=== PATIENT | male | born 1950 | race Caucasian/White ===

== ENCOUNTER 2020-11-24 14:05 | Observation (INO) | payer OTHER ==
--- OUTSIDE RECORDS SUMMARY | 2020-11-24 14:07 | XMS REPORT | Continuity of Care Document ---
:1950 Author Organization [facility] t Address [address] [place] [address] Care Team Providers Name Role Phone Chago Marshall DO Attending Clinician Azar Benjamin MD Attending Clinician NILDA Attending Clinician Unavailable NOHEMI SANTORO Attending Clinician Unavailable Problems This patient has no known problems. Allergies, Adverse Reactions, Alerts This patient has no known allergies or adverse reactions. Social History Social Habit Start Date Stop Date Quantity Comments Source Sex Assigned At [facility] Medications Ordered Filled Start Stop Current Ordering Indication Dosage Frequency Signature Comments Components Source Medication Medication Date Date Medication? Clinician (SIG) Name Name rosuvastati 2017-09 Yes 20mg QD Take [address] [facility] ([facility]) 0-17 by mouth Luke s - 20 MG 12:46: daily. Medical tablet 34 Center Missing or 2017-09 Yes 150mg Q.5D Take [address] Non-Formula 0-17 mg [facility] - ry 12:46: mouth 2 Medical Medication 34 (two) Center times daily OFEV . Procedures This patient has no known procedures. Plan of Care Planned Activity Planned Date Details Comments Source Future Scheduled 2020-09-[address] [facility] - [facility] 00:00:00 (12+) [code = Medical Center DEPRESSION SCREENING (12+)] Future Scheduled 2020-05-19 INFLUENZA VACCINE (#1) [facility] 00:00:00 [code = INFLUENZA Medical nter VACCINE (#1)] Future Scheduled 2016-04-[address] [facility] - [facility] 00:00:00 WELLNESS (YEAR 2 or Medical Center FIRST YEAR if no IPPE) [code = MEDICARE ANNUAL WELLNESS (YEAR 2 or FIRST YEAR if no IPPE)] Future Scheduled 2015 PNEUMOCOCCAL 65+ YRS [facility] - Test 00:00:00 (1 of 1 - Medical Center [id number] PCV13) [code = PNEUMOCOCCAL 65+ YRS (1 of 1 - [id number] PCV13)] Future Scheduled 2000 SHINGLES VACCINES ([address] [facility] - Test 00:00:00 of 2) [code = SHINGLES Medic al Center VACCINES (1 of 2)] Future Scheduled 1969 DTAP/TDAP/TD VACCINES [facility] 00:00:00 (1 - Tdap) [code = Medical C enter DTAP/TDAP/TD VACCINES (1 - Tdap)] Future Scheduled 1968 HEPATITIS C SCREENING [facility] 00:00:00 [code = HEPATITIS C Medical Center SCREENING] Future Scheduled [address] [facility] [facility] - Test 00:00:00 [facility] colon (procedure) [code = 355935102] Encounters Start End Encounter Admission Attending Care Care Encounter Source Date/Time Date/Time Type Type Clinicians Facility Department ID 2020-11-23 2020-11-23 [place] [id number] 00:00:00 00:00:00 Outreach [facility] [id number] [facility] [id number] PAVROHITH [id number] 2020-11-16 2020-11-16 [facility] [id number] 00:00:00 00:00:00 Ray Vogel [id number] [place] [id number] [facility] 2020-11-12 2020-11-12 [place] [id number] 10:56:28 23:59:00 Encounter Ray Vogel [id number] [place] [id number] Mercedes [id number] 2020-10-23 2020-10-26 Office Cassidy WANATALIA [id number] 14:50:21 08:50:24 Visit Ray Vogel [id number] [place] [id number] [facility] [id number] [facility] 092 [facility] 2020-10-15 2020-10-15 Outpatient [facility] [id number] [place] 00:00:00 00:00:[address] 2020-09-24 2020-09-24 Outpatient NILDA, [facility] [id number] [place] 00:00:00 00:00:00 EMANUEL [address] Results Test Description Test Time Test Comments Results Result Comments Source IGG INDEX (CSF + BLOOD) 2018-07-06 08:32:00 Test Item Value Reference Range Interpretation Comme nts SCAN RESULT (test code = 7235086) FL, LUMBAR PUNCTURE, [id number] 16:39:00Reason for Exam:->neuropathy FINAL REPORT REFERRING PHYSICIAN: Bob Santoro M.D. PROCEDURE: Fluoroscopy guided diagnostic lumbar puncture RADIOLOGIST: Mali Garcia M.D. INDICATION: Neuropathy DESCRIPTION OF PROCEDURE:The patient was prepped and draped on the fluoroscopy table following the usual sterile fashion for lumbar puncture. 1% lidocaine was administered for local anesthesia. Using fluoroscopic guidance, a 22-gauge spinal needle was advanced into the thecal sac at the L4-5 level. Approximately 15 cc of clear spinal fluid was removed and sent to the laboratory for the requested studies. There were no periprocedural complications. Fluoroscopy time: 0.2 minutes, 1 fluoroscopic image IMPRESSION: Successful fluoroscopy guided diagnostic lumbar puncture. Signed: Mali Garcia MDReport Verified Date/Time: 07/04/2018 16:39:42 Reading Location: [facility] C0[facility] Neuro Reading Room CSF CELL COUNT [id number] 15:36:00 Test Item Value Reference Range Interpretation Comments APPEARANCE CSF (BEAKER) (test Clear Clear code = 407) COLOR CSF (BEAKER) (test code Colorless Colorless = 408) RBC CSF (BEAKER) (test code = 0 /cu mm 0-5 409) WBC CSF (BEAKER) (test code = 0 /cu mm <=5 1020) RBCS FRESH (BEAKER) (test code Not Applicable = 1444) NUMBER OF CELLS DIFF'D 0 (BEAKER) (test code = 1591) TUBE NUMBER CSF (BEAKER) (test 2 code = 2678) GLUCOSE, [id number] 15:31:00 Test Item Value Reference Range Interpretation Comments GLUCOSE CSF (BEAKER) (test code = 66 mg/dL 40-70 406) PROTEIN, [id number] 15:31:00 Test Item Value Reference Range Interpretation Comments PROTEIN CSF (BEAKER) (test code = 44 mg/dL 15-45 378)
[2020-11-24] MEDS ORDERED: NA CHLORIDE 0.9% 1,000 ML ONE (14:32)
[2020-11-24 14:38] LABS: Absolute Lymphocytes (CBC) 1.4 K/uL (0.7-4.9); Basophils % 0.5 % (0-1.3); Hematocrit 47.2 % (39.6-49.0); Lymphocytes % 19.5 % (15.3-44.8)
[2020-11-24 14:43] LABS: Protime INR 0.97
[2020-11-24 14:57] LABS: ALT/SGPT 29 U/L (12-78); AST/SGOT 22 U/L (15-37); Albumin 3.3 g/dL (3.4-5.0); Alkaline Phosphatase 82 U/L (45-117); BUN Blood Urea Nitrogen 17 mg/dL (7-18); Bicarbonate 31 mmol/L (21-32); Bilirubin Direct 0.2 mg/dL (0-0.2); Bilirubin Total 0.7 mg/dL (0.2-1.0); Glucose Level 88 mg/dL (74-106); Magnesium 2.2 mg/dL (1.8-2.4); NT PRO-BNP 74 pg/mL (<125); Potassium 4.1 mmol/L (3.5-5.1); Protein, Total 6.7 g/dL (6.4-8.2); Sodium Level 145 mmol/L (136-145); Troponin (Emerg Dept Use Only) < 0.02 ng/mL (0.0-0.045)
--- NOTE | 2020-11-24 15:03 | RAD REPORT ---
EXAM DESCRIPTION: CT - CTHCSPWOC - 11/24/2020 2:40 pm CLINICAL HISTORY: syncope, head injury COMPARISON: No comparisons TECHNIQUE: Axial 5 mm thick images of the head were obtained. Axial 2 mm thick images of the cervic al spine were obtained with sagittal and coronal reconstruction images generated and reviewed. All CT scans are performed using dose optimization technique as appropriate and may include automated exposure control or mA/KV adjustment according to patient size. FINDINGS: No intracranial hemorrhage, mass, edema or acute intracranial finding. No suspicion for ac perez infarction. No extra-axial fluid collections. Mastoid air cells and paranasal sinuses are clear. No globe or orbit abnormality seen. Right frontal scalp hematoma is present. Underlying bone is intac t. Mild atrophy and chronic ischemic change. Ventricles are in proportion. Cervical body height and alignment are normal. C4-5, C5-6 and C6-7 disc space narrowing and endplate spurring changes are present. No fracture or acute bony abnormality. Prominent facet joint degenerati ve changes are present. Bony foraminal encroachment is seen on the right at C2-3, on the left at C4-5 . Central canal detail is inherently limited. No paraspinal mass or hematoma. IMPRESSION: Right frontal scalp hematoma with underlying bone intact bone. No hemorrhage or acute in tracranial finding. Cervical spine degenerative change present with no acute finding.
--- NOTE | 2020-11-24 15:13 | RAD REPORT ---
EXAM DESCRIPTION: RAD - Chest Single View - 11/24/2020 2:52 pm CLINICAL HISTORY: syncope COMPARISON: February 2012 TECHNIQUE: AP portable chest image was obtained 11/24/2020 2:52 pm . FINDINGS: Lung volumes are low. No pneumothorax seen. No pulmonary contusion identified. Bilateral c ostophrenic angle blunting is present. This is not substantially different from comparison and theref ore no significant pleural effusions suspected. Prominent interstitial opacification throughout both lung schwarz. This has progressed from 2012. Ethan a and infiltrate could be masked in this setting. Pulmonary contusion is not suspected. Heart and vas culature are normal. No acute bony abnormality seen. No acute aortic findings suspected. IMPRESSION: No pneumothorax or pulmonary contusion. Diffusely prominent interstitial opacification progressive from 2012. This is probably progressive ch ronic interstitial lung disease. Acute mild superimposed interstitial edema or infiltrate cannot be excluded.
--- NOTE | 2020-11-24 15:53 | EDPHYS ---
Physician Documentation [facility] Name: Bennie Bowles Age: 70 yrs Sex: Male : 1950 Arrival Date: 11/24/2020 Time: 14:06 Bed 19 Private MD: Mina Bright C ED Physician Byron Moreno HPI: 11/24 14:33 This 70 yrs old Male presents to ER via EMS with complaints of Fall Injury. pm1 14:33 Details of fall: The patient fell from an upright position, while walking, and struck a pm1 tile surface, possibly chair. Onset: The symptoms/episode began/occurred just prior to arrival. Associated injuries: The patient sustained injury to the head, abrasion, contusion, injury to the chest, specifically the left breast, tenderness. Severity of symptoms: in the emergency department the symptoms are unchanged. The patient has not experienced similar symptoms in the past. The patient has not recently seen a physician, the patient's primary care provider is Dr. Bright. Patient got up from sitting, walked to the kitchen and passed out. Denies any prior headache, dizziness, chest pain, shortness of breath. He does not know why he fell down. According to EMS report, his friends from him immediately awake after they heard the fall in the kitchen. No apparent LOC. Patient reports headache to right forehead. No neck pain present. No blood thinners. - Immunization history: Last tetanus immunization: unknown. - Social history:: Smoking status: Patient/guardian denies using. ROS: 14:33 Constitutional: Negative for fever, chills, and weight loss, Neck: Negative for injury, pm1 pain, and swelling. 14:33 ENT: Negative for injury, pain, and discharge, Cardiovascular: Negative for chest pain, palpitations, and edema, Respiratory: Negative for shortness of breath, cough, wheezing, and pleuritic chest pain, Abdomen/GI: Negative for abdominal pain, nausea, vomiting, diarrhea, and constipation, Back: Negative for injury and pain, MS/Extremity: Negative for injury and deformity. 14:33 Eyes: Positive for swelling, of the right upper eyelid, Negative for vision loss, visual disturbance. 14:33 Skin: Positive for abrasion(s), ecchymosis, of the forehead. 14:33 Neuro: Positive for headache, syncope, Negative for altered mental status, dizziness, loss of consciousness, numbness, seizure activity, tingling, visual changes, weakness. Exam: 14:33 Constitutional: This is a well developed, well nourished patient who is awake, alert, pm1 and in no acute distress. Neck: Trachea midline, no thyromegaly or masses palpated, and no cervical lymphadenopathy. Supple, full range of motion without nuchal rigidity, or vertebral point tenderness. No Meningismus. 14:33 Back: No spinal tenderness. No costovertebral tenderness. Full range of motion. Skin: Warm, dry with normal turgor. Normal color with no rashes, no lesions, and no evidence of cellulitis. MS/ Extremity: Pulses equal, no cyanosis. Neurovascular intact. Full, normal range of motion. 14:33 Head/face: Noted is no obvious of injury or deformity except abrasion(s), that are mild, of the forehead, right side, contusion, that is superficial, of the forehead, right side. 14:33 Eyes: Pupils: no acute changes, Extraocular movements: intact throughout, Conjunctiva: no acute changes, Lids and lashes: swelling right upper eyelid. 14:33 Chest/axilla: Inspection: no acute changes, Palpation: crepitus, is not appreciated, tenderness, that is mild, of the focal point pain to left breast, that totally reproduces the patient's complaints. 14:33 Cardiovascular: Exam negative for acute changes, Rate: normal, Rhythm: irregular, Pulses: no pulse deficits are appreciated, Heart sounds: normal, Edema: is not appreciated. 14:33 Respiratory: Exam negative for acute changes, respiratory distress, shortness of breath, Breath sounds: are clear throughout. 14:33 Abdomen/GI: Exam negative for acute changes, Inspection: abdomen appears normal, Palpation: abdomen is soft and non-tender, in all quadrants. 14:33 Neuro: Exam negative for acute changes, Orientation: is normal, Mentation: is normal, Motor: is normal, moves all fours, strength is normal, strength is 5/5 in all extremities, Sensation: is normal, no obvious gross deficits. Vital Signs: 14:20 BP 136 / 79 Supine; Pulse 93; mt 14:20 BP 147 / 89 Sitting; Pulse 98; mt 14:20 BP 146 / 74 Standing; Pulse 108; mt 20:02 BP 139 / 81; Pulse 78; Resp 18; Pulse Ox 98% on R/A; wh Towson Coma Score: 14:10 Eye Response: spontaneous(4). Verbal Response: oriented(5). Motor Response: obeys bw commands(6). Total: 15. Trauma Score (Adult): 14:10 Eye Response: spontaneous(1); Verbal Response: oriented(1); Motor Response: obeys bw commands(2); Systolic BP: > 89 mm Hg(4); Respiratory Rate: 10 to 29 per min(4); Oneyda Score: 15; Trauma Score: 12 MDM: 14:15 Patient medically screened. pm1 14:26 ED course: Patient did not want any medications for pain. Patient reports headache from pm1 contusion. 15:49 Data reviewed: vital signs. Data interpreted: Pulse oximetry: on room air is 100 %. pm1 Interpretation: normal. Counseling: I had a detailed discussion with the patient and/or guardian regarding: the historical points, exam findings, and any diagnostic results supporting the discharge/admit diagnosis, lab results, radiology results, the need for further work-up and treatment in the hospital. 15:49 ED course: Patient with abnormal EKG, occasional/frequent PVC. Monroe syncope pm1 score = not in low risk group, therefore will admit to hospital. 15:49 ED course: On Telemetry patient with a PVC every 4 beats occasionally. No bigeminy or pm1 trigeminy present. 16:26 Physician consultation: A Deangelo SANCHEZ was called at 16:18, was contacted at 16:26, pm1 regarding admission, patient's condition, Observation admission with cardiology consultation. 11/24 14:13 Order name: Basic Metabolic Panel pm1 11/24 14:13 Order name: CBC with Diff pm1 11/24 14:13 Order name: LFT's pm1 11/24 14:13 Order name: Magnesium pm1 11/24 14:13 Order name: NT PRO-BNP; Complete Time: 15:00 pm1 11/24 14:13 Order name: PT-INR; Complete Time: 15:00 pm1 11/24 14:13 Order name: Troponin (emerg Dept Use Only); Complete Time: 15:00 pm1 11/24 14:13 Order name: XRAY Chest (1 view); Complete Time: 15:21 pm1 11/24 14:14 Order name: Basic Metabolic Panel; Complete Time: 15:00 EDMS 11/24 14:14 Order name: CBC with Automated Diff; Complete Time: 15:00 EDMS 11/24 14:14 Order name: Liver (Hepatic) Function; Complete Time: 15:00 EDMS 11/24 14:14 Order name: Magnesium; Complete Time: 15:00 EDMS 11/24 17:31 Order name: SARS-COV-2 RT PCR; Complete Time: 17:42 EDMS 11/24 14:13 Order name: Orthostatic Blood Pressure; Complete Time: 14:20 pm1 11/24 14:13 Order name: EKG; Complete Time: 14:14 pm1 11/24 14:13 Order name: Cardiac monitoring; Complete Time: 14:19 pm1 11/24 14:13 Order name: EKG - Nurse/Tech; Complete Time: 14:19 pm1 11/24 14:13 Order name: IV Saline Lock; Complete Time: 14:19 pm1 11/24 14:13 Order name: Labs collected and sent; Complete Time: 14:20 pm1 11/24 14:13 Order name: O2 Per Protocol; Complete Time: 14:19 pm1 11/24 14:13 Order name: O2 Sat Monitoring; Complete Time: 14:19 pm1 11/24 14:13 Order name: CT Head C Spine; Complete Time: 15:09 pm1 11/24 14:13 Order name: Ice pack; Complete Time: 14:22 pm1 Administered Medications: 14:48 Drug: NS 0.9% 1000 ml Route: IV; Rate: 1000 ml; Site: left forearm; 16:49 Drug: Tetanus-Diphtheria Toxoid Adult 0.5 ml {Microarray Analyst: [employer] Exp: 02/21/2022. Lot #: [id number]. } Route: IM; Site: right deltoid; Disposition: 11/25 07:00 Co-signature as Attending Physician, Byron Moreno MD. rn Disposition: 11/24/20 15:52 Hospitalization ordered by Mina Bright for Observation. Preliminary diagnosis are Syncope and collapse, Superficial injury of head, Fall on same level, unspecified. - Bed requested for Telemetry/MedSurg (observation). - Status is Observation. wh - Condition is Stable. - Problem is new. - Symptoms have improved. Signatures: Dispatcher [employer] EDMN Darcie Black bd Byron Moreno MD MD rn Marinas, Patrick, GAME ADVISOR GAME ADVISOR pm1 Xavier Krishna, Khushi Rosen RN, RN RN Corrections: (The following items were deleted from the chart) 03 16:52 15:55 CORONAVIRUS+MR.LAB.BRZ ordered. EDMN EDMS 19:01 15:52 Hospitalization Ordered by A Deangelo SANCHEZ for Observation. Preliminary diagnosis is bd Syncope and collapseSuperficial injury of head; Fall on same level, unspecified. Bed requested for Telemetry/MedSurg (observation). Status is Observation. Condition is Stable. Problem is new. Symptoms have improved. pm1 20:04 19:01 11/24/2020 15:52 Hospitalization Ordered by A Deangelo SANCHEZ for Observation. Preliminary diagnosis is Syncope and collapseSuperficial injury of head; Fall on same level, unspecified. Bed requested for Telemetry/MedSurg (observation). Status is Observation. Condition is Stable. Problem is new. Symptoms have improved. bd
--- NOTE | 2020-11-24 15:53 | ER ---
Nurse's Notes [facility] Name: Bennie Bowles Age: 70 yrs Sex: Male : 1950 Arrival Date: 11/24/2020 Time: 14:06 Bed 19 Private MD: Mina Bright C Diagnosis: Superficial injury of head;Fall on same level, unspecified;Syncope and collapse Presentation: 11/24 14:10 Acuity: RACQUEL 2 bw 14:10 Method Of Arrival: EMS: [facility] bw 14:10 Chief complaint: Patient states: Pt states he was walking in the kitchen, LOC, and bw passed out. Pt hit head on counter. EMS states: call for fall at home with nosebleed. Pt hit right side of head. Care prior to arrival: IV placed. 12 lead-NSR with unifocal PVC's. Mechanism of Injury: Fall. Trauma event details: Injury occurred in the [facility], Injury occurred: at home. 19:15 Coronavirus screen: Client denies travel out of the [place] in the last 14 days. At this wh time, the client does not indicate any symptoms associated with coronavirus-19. Ebola Screen: Patient negative for fever greater than or equal to 101.5 degrees Fahrenheit, and additional compatible Ebola Virus Disease symptoms Patient denies exposure to infectious person. Initial Sepsis Screen: Does the patient meet any 2 criteria? HR > 90 bpm. Does the patient have a suspected source of infection? No. Patient's initial sepsis screen is negative. Risk Assessment: Do you want to hurt yourself or someone else? Patient reports no desire to harm self or others. Onset of symptoms was November 24, 2020. Trauma Activation: Alert Physician: ED Physician; Name: ; Notified At: ; Arrived At: Physician: General Surgeon; Name: ; Notified At: ; Arrived At: Physician: Radiology; Name: ; Notified At: ; Arrived At: Physician: Respiratory; Name: ; Notified At: ; Arrived At: Physician: Lab; Name: ; Notified At: ; Arrived At: - Immunization history: Last tetanus immunization: unknown. - Social history:: Smoking status: Patient/guardian denies using. Screenin:10 Abuse screen: Denies threats or abuse. Nutritional screening: No deficits noted. bw Tuberculosis screening: No symptoms or risk factors identified. Fall risk At risk due to age, deformity, prior history of falls. 19:15 Fall Risk Fall in past 12 months (25 points). Primary Survey: 14:10 NO uncontrolled hemorrhage observed. A: Airway: patent. Breathing/Chest: Respiratory bw pattern: regular, Respiratory effort: spontaneous, unlabored, Breath sounds: clear, Chest inspection: symmetrical rise and fall of the chest. Circulation: Cardiac rhythm: sinus rhythm. Disability Alert. Exposure/Environment: Obvious injury(ies) are noted at this time: right side of head hematoma noted. A warming method has been applied: A warm blanket has been provided to the patient. Reassessment Airway Airway Patent Breathing/Chest Respiratory pattern Regular Circulation Heart rhythm Sinus rhythm Disability Alert. Assessment: 14:10 General: Appears in no apparent distress. uncomfortable, Behavior is calm, cooperative, bw appropriate for age. Pain: Complains of pain in right side of head. Neuro: No deficits noted. Level of Consciousness is awake, alert, obeys commands, Oriented to person, place, time, situation, Die Repairer Stamping are equal bilaterally Moves all extremities. Gait is steady, Speech is normal, Facial symmetry appears normal, Pupils are PERRLA, Intact. EENT: No deficits noted. Cardiovascular: No deficits noted. Respiratory: No deficits noted. GI: No deficits noted. : No deficits noted. Derm: No deficits noted. Musculoskeletal: Swelling present in right side of head Reports pain in right side of head, right side of rib cage. Injury Description: Abrasion sustained to forehead and right religion. 19:15 Reassessment: Patient appears in no apparent distress at this time. Patient and/or family updated on plan of care and expected duration. Pain level reassessed. Patient is alert, oriented x 3, equal unlabored respirations, skin warm/dry/pink. Vital Signs: 14:20 BP 136 / 79 Supine; Pulse 93; mt 14:20 BP 147 / 89 Sitting; Pulse 98; mt 14:20 BP 146 / 74 Standing; Pulse 108; mt 20:02 BP 139 / 81; Pulse 78; Resp 18; Pulse Ox 98% on R/A; Oneyda Coma Score: 14:10 Eye Response: spontaneous(4). Verbal Response: oriented(5). Motor Response: obeys bw commands(6). Total: 15. Trauma Score (Adult): 14:10 Eye Response: spontaneous(1); Verbal Response: oriented(1); Motor Response: obeys commands(2); Systolic BP: > 89 mm Hg(4); Respiratory Rate: 10 to 29 per min(4); Oneyda Score: 15; Trauma Score: 12 ED Course: 14:06 Patient arrived in ED. am2 14:06 David Bright MD is Private Physician. am2 14:06 Mina Bright MD is Private Physician. am2 14:06 Hari Moralez NP is PHCP. pm1 14:06 Byron Moreno MD is Attending Physician. pm1 14:10 Patient has correct armband on for positive identification. Bed in low position. Call bw light in reach. Side rails up X 1. bookkeeping manager on. Pulse ox on. NIBP on. 14:10 Maintain EMS IV. Dressing intact. Good blood return noted. Site clean \T\ dry. Gauge \T\ bw site: 18 g LFA. Patient maintains SpO2 saturation greater than 95% on room air. Thermoregulation: warm blanket given to patient. 14:31 Khushi Harmon, JULIO is Primary Nurse. bw 14:37 Triage completed. bw 14:40 CT Head C Spine In Process Unspecified. EDMS 14:51 XRAY Chest (1 view) In Process Unspecified. EDMS 15:51 Mina Bright MD is Hospitalizing Provider. pm1 19:08 Primary Nurse role handed off by Khushi Harmon RN mw2 19:15 Arm band placed on right wrist. 19:53 Xavier Krishna RN is Primary Nurse. 19:58 No provider procedures requiring assistance completed. Patient admitted, IV remains in place. Administered Medications: 14:48 Drug: NS 0.9% 1000 ml Route: IV; Rate: 1000 ml; Site: left forearm; bw 16:49 Drug: Tetanus-Diphtheria Toxoid Adult 0.5 ml {Cooler Service Supervisor: [employer]. Exp: bw 02/21/2022. Lot #: [id number]. } Route: IM; Site: right deltoid; Intake: 20:01 IV: 1000ml (IV Fluid); Total: 1000ml. Outcome: 15:52 Decision to Hospitalize by Provider. pm1 20:00 Admitted to Med/surg accompanied by tech, via wheelchair, room 214, with chart, Report wh called to Julee KIM 20:00 Condition: stable 20:00 Instructed on the need for admit. 20:01 waiting for bedPatient's length of stay extended due to wh 20:04 Patient left the ED. Signatures: Dispatcher [employer] EDMS Hari Moralez NP PARASITOLOGIST pm1 Anh Oneill RN RN Nae Hutchinson [facility]ing Garner [place] Xavier Krishna RN RN Reina Ramirez 2 Khushi Harmon RN RN Corrections: (The following items were deleted from the chart) 14:37 14:10 Trauma Activation: Alert [facility]
[2020-11-24] MEDS ORDERED: TETANUS & DIPHTHERIA TOX,ADULT 0.5 ML VIAL ONE (17:02)
[2020-11-24] MEDS ORDERED: ACETAMINOPHEN 325 MG TABLET ONE (18:41)
[2020-11-24 22:11] VITALS: BMI 22.7
[2020-11-25 06:36] LABS: Absolute Lymphocytes (CBC) 1.6 K/uL (0.7-4.9); Basophils % 0.2 % (0-1.3); Hematocrit 42.8 % (39.6-49.0); MPV 9.3 fL (7.6-11.3); RBC Red Blood Cell Count 4.66 M/uL (4.33-5.43)
[2020-11-25 06:51] LABS: Potassium 4.1 mmol/L (3.5-5.1)
--- NOTE | 2020-11-25 07:16 | HP ---
Date of Admission: 11/24/2020 Chief Complaint: Fall and head injury. History Of Present Illness: This is a 70-year-old very pleasant male patient, who was in his normal usual state of health until today when he was at home walking from one room to another room, all of a sudden without any prior symptoms or warning he fell down on the floor. He was in room by himself, but his family and friends, they were in another room and they heard a loud [facility] he was found on the floor. The patient denies any loss of consciousness, but he did have head injury and he was brought into the emergency room. Denies any nausea or vomiting. No visual c omplaints. No chest pain, palpitation. No shortness of breath. He has significant pulmonary inters titial fibrosis and because of that he has some dry cough from time to time, which is nothing unusual and that has not changed any lately at all. Today, when he was walking, he did have little bit coug h but once again this is just like his normal cough and he did not have what we describe as prolonged coughing spell or any straining involved at that time. The patient was evaluated in the emergency r oom and he was admitted to the hospital with this syncope problem. I saw him in the ER. Allergies: NO KNOWN ALLERGIES. Medications: Ofev 100 mg p.o. 2 times a day and Crestor 20 mg p.o. daily. Review of Systems: Cardiovascular: As mentioned above. GMAT INSTRUCTOR: As mentioned above. Respiratory: As mentioned above. All other systems reviewed and negative. Past Medical History: Significant for allergic rhinitis, impaired fasting glucose, hyperlipidemia, p ulmonary fibrosis, benign prostatic hypertrophy. Past Surgical History: Significant for cholecystectomy. Family History: Father had congestive heart failure. Mother had diabetes and hypertension. Social History: Negative for smoking. Use of alcohol occasional, use of glass of wine. Physical Examination: Vital Signs: Temperature 97.9, pulse 82, respiratory rate 20, blood pressure 122/60, oxygen saturati on 98%, height 6 feet 2 inches, weight 177 pounds. General: Awake, alert, oriented, not in distress. HEENT: The patient has a large frontal scalp hematoma and mild contusion of right upper eyelid an ar ea surrounding to it. He has some skin abrasion on the right frontal scalp region. Mouth, no thrush or edema noted. Ears/Nose, no mass, lesion, discharge noted. Neck: Supple. No JVD, lymph nodes, bruit, thyromegaly noted. Lungs: Presence of rales noted in bilateral lower 2/3 lung schwarz. Not in any respiratory distress. Heart: Normal heart sounds, no murmur or gallop. Abdomen: Soft, bowel sounds normal. No guarding, rigidity, tenderness, mass, hepatosplenomegaly, di stention, or bruit noted. Extremities: No leg edema. No calf tenderness. Skin: No rash, ulcer, cellulitis. Lymphatics: No lymph node enlargement in neck, supraclavicular, infraclavicular region. Neuro: No focal neurological deficit. Chest: Unremarkable. External Genitalia: Deferred. Rectal: Deferred. Laboratory Data: INR 0.97. White count 7.4, hemoglobin 15.7, platelets 181. Sodium 145, potassium 4.1, chloride 109, bicarb 31, BUN 17, creatinine 1.13, glucose 88. Liver function tests were unremar kable. Magnesium 2.2. Troponin less than 0.02. COVID-19 test negative. Chest x-ray shows bilatera l interstitial fibrotic changes. CAT scan of the head and cervical spine shows no acute intracranial changes, right frontal scalp hematoma noted, evidence of mild cervical spine degenerative changes. EKG shows sinus rhythm with frequent PVCs. Impression: 1.Syncope. 2.Right frontal scalp hematoma. 3.Head injury. 4.Pulmonary fibrosis. 5.Hyperlipidemia. 6.Benign prostatic hypertrophy. 7.Allergic rhinitis. Plan: We will admit patient to hospital for further evaluation and management of this problem. The patient will be admitted to telemetry. We will monitor for any cardiac arrhythmia. He does have yamile quent PVCs that was noted while he was in the emergency room. We will get echo with Doppler, carotid Doppler, cardiology consult. We will also check orthostatic vital sign changes. He did receive 1 L of IV fluid in the emergency room and we will get a D-dimer test and I will repeat his CT scan of th e head without contrast tomorrow to look for any evidence of late complications from this head injury . We will also get a CAT scan of the chest per PE protocol. Details and plan of treatment discussed with the patient and the patient's who was contacted on the phone. I will see him tomorrow for followup. EVE/ANNELIESE Voice ID: [id number]
[2020-11-25] MEDS ORDERED: HYDROCODONE/APAP 5/325 MG TAB PO PRN (07:29)
[2020-11-25] MEDS ORDERED: ACETAMINOPHEN 500 MG TAB PO PRN (07:29)
--- NOTE | 2020-11-25 08:30 | RAD REPORT ---
EXAM DESCRIPTION: CT - Head Brain Wo Cont - 11/25/2020 7:30 am CLINICAL HISTORY: syncope, rule out PE Headache, drowsiness COMPARISON: Chest For Pe Angio dated 11/25/2020 TECHNIQUE: All CT scans are performed using dose optimization technique as appropriate and may inclu de automated exposure control or mA/KV adjustment according to patient size. FINDINGS: No intracranial hemorrhage, hydrocephalus or extra-axial fluid collection.No areas of brai n edema or evidence of midline shift. The paranasal sinuses and mastoids are clear. The calvarium is intact. Moderate right frontal scalp h ematoma. IMPRESSION: No acute intracranial abnormality.
--- NOTE | 2020-11-25 08:37 | RAD REPORT ---
EXAM DESCRIPTION: CT - Chest For Pe Angio - 11/25/2020 7:31 am CLINICAL HISTORY: Chest pain. syncope, rule out PE COMPARISON: No comparisons TECHNIQUE: CT angiogram of the pulmonary arteries was performed with MIP. All CT scans are performed using dose optimization technique as appropriate and may include automated exposure control or mA/KV adjustment according to patient size. FINDINGS: No evidence of pulmonary thromboembolism. No acute aortic finding demonstrated. Mild diffuse COPD is present with fibrotic changes. Moderate bibasilar lung opacities are seen which may represent bibasilar pneumonia/infection. No significant pericardial or pleural fluid. No concerning bony finding. IMPRESSION: No evidence of pulmonary thromboembolism. Fibroemphysematous changes throughout the lungs with moderate bibasilar lung opacities are suspicious for infection/pneumonia.
--- NOTE | 2020-11-25 08:40 | RAD REPORT ---
EXAM DESCRIPTION: - CP - 11/25/2020 7:51 am CLINICAL HISTORY: syncope Headache, drowsiness COMPARISON: Head C Spine Mpr Wo Con dated 11/24/2020 TECHNIQUE: Real-time sonographic evaluation of both carotid systems was performed. Doppler interroga tion was performed with waveform tracing bilaterally. FINDINGS: Normal high resistance waveforms are noted in both external carotid arteries. The common c arotid arteries and internal carotid arteries show normal low resistance waveforms. Small hard plaque is seen involving both carotid bulbs. Peak systolic and end diastolic velocity valu es and the ICA/CCA ratios are in the non-hemodynamically significant range. Antegrade flow seen in both vertebral arteries. IMPRESSION: Small hard plaque is seen in involving both carotid bulbs. No evidence of a hemodynamically significant stenosis.
[2020-11-25] MEDS ORDERED: NINTEDANIB ESYLATE 100 MG PO SCH (09:00)
[2020-11-25] MEDS ORDERED: Levofloxacin500mg IV 500 MG/100 ML BAG IV SCH (09:00)
[2020-11-25 10:11] VITALS: O2SAT 99
[2020-11-25 15:39] VITALS: BP 108/61; TEMP 97.2
[2020-11-25] MEDS ORDERED: HOME MED 1 EA UNK (Rosuvastatin Calcium [Crestor] 20 MG Tablet) PO SCH (21:00)
--- NOTE | 2020-11-26 05:17 | EKG ---
Test Date: 2020-11-24 Test Time: 14:14:53 Cracking And Fanning Machine Operator: DANA MEASUREMENT RESULTS: Intervals: Rate: 89 NV: 98 QRSD: 86 QT: 332 QTc: 403 Osgood: P: -25 NV: 98 QRS: 16 T: -5 INTERPRETIVE STATEMENTS: Sinus rhythm with sinus arrhythmia with short NV with frequent premature ventricular complexes ST abnormality, possible digitalis effect Abnormal ECG Compared to ECG 04/08/2015 08:37:00 Short NV interval now present ST (T wave) deviation now present Electronically Signed On 11-26-20 05:11:56 TRAFFIC COORDINATOR by Virgil Amaya
--- NOTE | 2020-11-26 08:37 | DS ---
Date of Discharge: 11/25/2020 Disposition: Discharged to go home. Physical Examination: HEENT: Unremarkable except large area of right frontal scalp hematoma with some contusion and superficial skin abrasion in this area along with some swelling and bruising of the forehead and right upper eyelid. Lungs: Bilateral rales present, unchanged. Heart: Sounds normal. Abdomen: Soft. Bowel sounds normal. No guarding, rigidity, tenderness, or distention. Extremities: No leg edema. Laboratory Data: Today white count 7.8, hemoglobin 14.4, platelets 151. D- dimer 1019. Sodium 142, potassium 4.1, chloride 109, bicarb 28, BUN 12, creatinine 0.86, glucose 107. TSH 1.36. Hospital Course: This is a 70-year-old male patient, who was admitted to the hospital with fall, head injury, and syncope. Please see dictated H and P for more information. After the patient was brought to emergency room, he was evaluated and admitted to hospital under my service. Overnight his condition remained stable. Neurological status was normal. His initial CAT scan of the brain done in the emergency room was negative for any acute intracranial injury. Considering the nature of the head injury, I did repeat another CAT scan of the brain today to evaluate for any late signs of any internal injury and repeat CAT scan of the brain today was negative for any acute changes. The patient had orthostatic vital signs checked today, supine blood pressure 136/70, sitting 132/67, standing 120/68. His D-dimer was elevated, but CT scan of the chest per PE protocol was negative for pulmonary embolism, it does show changes of bilateral pulmonary fibrosis. Echocardiogram done, but result pending. CT scan of the chest did raised possibility of some infiltrate in the lung base. Carotid Doppler did not show any hemodynamically significant stenotic lesion. Cardiology consultation was requested from Dr. Amaya and he did evaluate the patient. Details were discussed with him and his office will contact the patient to schedule an event monitor. All these details were discussed with the patient this morning when I saw him and also later in the evening hours I did call after he went home and discussed details with the patient and his . The patient was started on Levaquin in the hospital and upon discharge, we will ask him to continue Levaquin 500 mg daily for 1 week. The patient was instructed to continue all his prior home medication upon discharge and follow up at my office next week per instruction on Monday or Monday. The patient's original plan was to leave town this coming weekend to go to [place] for 5-6 days and I have advised him not to do so until the cardiac workup is completed. The patient was instructed to drink 50-60 ounce of water a day. Final Diagnoses: 1. Syncope. 2. Pneumonia. 3. Pulmonary fibrosis. 4. Hyperlipidemia. 5. Impaired fasting glucose. 6. Benign prostatic hypertrophy. 7. Allergic rhinitis. EVE/MODL Voice ID: [id number] Report ID: [id number] AYAAN
--- NOTE | 2020-11-26 08:39 | ECHO ---
HEIGHT: 6 ft 2 in WEIGHT: 177 lb 0 oz DATE OF STUDY: 11/25/[address]: David Bright MD 2-DIMENSIONAL: YES M.MODE: YES DOPPLER: YES COLOR FLOW: YES TDS: NO PORTABLE: NO DEFINITY: NO BUBBLE STUDY: NO DIAGNOSIS: SYNCOPE CARDIAC HISTORY: CATHERIZATION: SURGERY: PROSTHETIC VALVE: PACEMAKER: MEASUREMENTS (cm) DIASTOLIC (NORMALS) SYSTOLIC (NORMALS) IVSd 1.0 (0.6-1.2) LA Diam 3.0 (1.9-4.0) LVEF 63% LVIDd 3.7 (3.5-5.7) LVIDs 2.5 (2.0-3.5) %FS 34% LVPWd 1.1 (0.6-1.2) Ao Diam 3.2 (2.0-3.7) 2 DIMENSIONAL ASSESSMENT: RIGHT ATRIUM: NORMAL LEFT ATRIUM: NORMAL RIGHT VENTRICLE: NORMAL LEFT VENTRICLE: NORMAL TRICUSPID VALVE: NORMAL MITRAL VALVE: NORMAL PULMONIC VALVE: NORMAL AORTIC VALVE: NORMAL PERICARDIAL EFFUSION: NONE AORTIC ROOT: NORMAL LEFT VENTRICULAR WALL MOTION: NORMAL DOPPLER/COLOR FLOW: NORMAL COMMENTS: NORMAL 2D ECHOCARDIOGRAM WITH DOPPLER. NO WALL MOTION ABNORMALITY. NO EFFUSION. TECHNOLOGIST: John CÁRDENAS
--- NOTE | 2020-11-28 11:25 | CON ---
Date of Consultation: 11/25/2020 History Of Present Illness: Mr. Gutierrez is a 70-year-old who is fairly healthy from a cardiovascul ar standpoint. He does have history of hyperlipidemia, allergic rhinitis, impaired fasting glucose, pulmonary fibrosis, and benign prostatic hypertrophy, who had an episode of sudden fall while he was walking in his house without any symptoms before or after his syncope. He denied complete loss of co nsciousness, but he did have a head injury, was brought to the emergency room. He did not have any n ausea or vomiting or chest pain or palpitation or shortness of breath. Did not have any seizure acti vities that was reported. He was not postictal. Past Medical History: As stated above. Allergies: NONE. Review of Systems: Negative. Social History: Negative. Family History: Noncontributory. Medications: At home include Crestor. He takes medicine called Ofev 100 mg twice a day for pulmonar y fibrosis. Physical Examination: Vital Signs: Stable. He was afebrile. He was in sinus rhythm. HEENT: Negative. Neck: Supple. No bruit. Chest: Clear. Cardiac: Normal. Abdomen: Benign. Extremities: No clubbing, cyanosis, or edema. Diagnostic Data: All his laboratory evaluations were normal. His chest x-ray showed bilateral inter stitial fibrosis. CAT scan of the head and cervical spine showed no acute injury and no acute intrac ranial changes. He did have a right frontal scalp hematoma and some cervical spine degenerative domingo ges. EKG showed sinus rhythm with frequent PVCs. Troponin was negative. Chest x-ray was negative. Impression And Plan: 1.Syncope with right frontal scalp hematoma and head injury. 2.Pulmonary fibrosis. 3.Hyperlipidemia. 4.Allergic rhinitis. 5.Benign prostatic hypertrophy. Carotid Doppler had been ordered. Echocardiogram had been ordered, both of those were normal. His EKG showed sinus rhythm with frequent PVCs. I suggest the patient c an go home whenever it is okay with Dr. Bright. I will set him up for a month long event monitor to ru le out arrhythmia as a possibility for his syncope. May be reasonable to consider a low-dose beta-bl ocker for his PVCs, but I will discuss the case further with Dr. Bright. GLADIS/ANNELIESE Voice ID: [id number] Report ID: [id number]
== END 2020-11-25 16:44 | disposition home or self-care (01) ==
LOC: ER 14:05 → ERHOLD 16:35 → 2ND 19:59
PROVIDERS: ADMIT Internal Medicine; ATTEND Internal Medicine
DX: R55 Syncope and collapse (principal); S00.03XA Contusion of scalp, initial encounter; S09.90XA Unspecified injury of head, initial encounter; W18.30XA Fall on same level, unspecified, initial encounter; Y92.000 Kitchen of unspecified non-institutional (private) residence as the place of occurrence of the external cause; J18.9 Pneumonia, unspecified organism; J84.10 Pulmonary fibrosis, unspecified; I49.3 Ventricular premature depolarization; E78.5 Hyperlipidemia, unspecified; R73.01 Impaired fasting glucose; N40.0 Benign prostatic hyperplasia without lower urinary tract symptoms; J30.9 Allergic rhinitis, unspecified; Z23 Encounter for immunization; Z20.822 Contact with and (suspected) exposure to COVID-19; Z90.49 Acquired absence of other specified parts of digestive tract; Z82.49 Family history of ischemic heart disease and other diseases of the circulatory system; Z83.3 Family history of diabetes mellitus
CPT/HCPCS: 93005 ×2; 93306; 85025 ×2; 80048 ×2; 36415; 83735; 85610; 85379; 80076; 84443; 84484 ×3; 83880; 70450 ×2; 72125; 71275; 71045; 90471; 93880; 90714; 99285; U0003; Q9967; J7030; G0378 ×3; G0390

== ENCOUNTER 2022-02-20 10:44 | Emergency (ER) | payer OTHER ==
--- OUTSIDE RECORDS SUMMARY | 2022-02-20 10:47 | XMS REPORT | Continuity of Care Document ---
:1950 Author Organization [facility] t Address [address] [place] [address] Dr. Cabrera. [address] [place] [address] Care Team Providers Name Role Phone No Primary Care Physician Unavailable JOHAN Attending Clinician Unavailable ABBEY Attending Clinician Unavailable MALISSA Attending Clinician Unavailable PRASHANTH Attending Clinician Unavailable Chago Marshall DO Attending Clinician Maura Benjamin MD Attending Clinician MAURA BENJAMIN Attending Clinician Unavailable MAURA BENJAMIN Attending Clinician Unavailable NILDA Attending Clinician Unavailable NOHEMI SANTORO Attending Clinician Unavailable MALISSA Admitting Clinician Unavailable Payers Payer Name Policy Type Policy Number Effective Date Expiration Date S talat [employer] MEDICARE PPO [id number] 2021 00:00:00 MEDICARE PART A [id number] 2015 \T\ B 00:00:00 Problems Condition Condition Condition Status Onset Resolution Last Treating Co mments Source Name Details Category Date Date Treatment Clinician Date Alzheimer' Alzheimer' Disease Active U T s disease s disease 2-16 [facility]al [facility] with late with late 00:00: onset onset 00 Hyperlipid Hyperlipid Disease Active U T emia emia 2-16 Health 00:00: 00 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 2-16 Health disease, disease, 00:00: cerebrovas cerebrovas 00 cular cular Allergies, Adverse Reactions, Alerts Allergy Allergy Status Severity Reaction(s) Onset Inactive Treating Comm ents Source Name Type Date Date Clinician NO KNOWN Drug Active Univers ALLERGIE Class ity of S [facility] Social History Social Habit Start Date Stop Date Quantity Comments Source Exposure to SARS-CoV-2 Not sure [facility] (event) Sex Assigned At [birth year] [facility] 00:00:00 00:00:00 Smoking Status Start Date Stop Date Source Ex-smoker 2021-11-03 00:00:00 2021-11-03 00:00:00 [facility] Medications Ordered Filled Start Stop Current Ordering Indication Dosage Frequency Signature Comments Components Source Medication Medication Date Date Medication? Clinician (SIG) Name Name rivastigmin 2021- Yes [id number] 1{patch QD Place 1 [facility] e (Exelon) 403-23 } patch on Heal th 9.5 MG/24HR 00:00: 04:59 the skin 1 00 :00 (one) time each day. rosuvastati Yes 20mg QD Take 20 mg [facility] n (Crestor) 2-16 by mouth 1 He alth 20 MG 11:54: (one) time tablet 30 each day. rosuvastati Yes 20mg QD Take 20 mg [facility] n (Crestor) 2-16 by mouth 1 He alth 20 MG 11:54: (one) time tablet 30 each day. rosuvastati 0 Yes 20mg QD Take 20 mg [facility] n (Crestor) 2-16 by mouth 1 He alth 20 MG 11:54: (one) time tablet 30 each day. Fluticasone Yes Inhale. [facility] -Umeclidin- 2-16 [facility] 10:54: 100-62.5-25 13 MCG/INH aerosol powder Fluticasone 2021-0 Yes Inhale. [facility] -Umeclidin- 2-16 [facility] 10:54: 100-62.5-25 13 MCG/INH aerosol powder Fluticasone 2021-0 Yes Inhale. [facility] -Umeclidin- 2-16 [facility] 10:54: 100-62.5-25 13 MCG/INH aerosol powder rivastigmin 2021-0 Yes [id number] WEEKS 1-4: [place] e (Exelon) 2-16 PLACE ONE [facility]al th 4.6 MG/24HR 00:00: PATCH ON 00 SKIN EVERY MORNING. WEEKS 5+: PLACE TWO PATCHES ON SKIN EVERY MORNING. rivastigmin 2021-0 Yes [id number] WEEKS 1-4: [place] e (Exelon) 2-16 PLACE ONE Heal th 4.6 MG/24HR 00:00: PATCH ON 00 SKIN EVERY MORNING. WEEKS 5+: PLACE TWO PATCHES ON SKIN EVERY MORNING. rivastigmin 2021-0 Yes [id number] WEEKS 1-4: [place] e (Exelon) 2-16 PLACE ONE Heal th 4.6 MG/24HR 00:00: PATCH ON 00 SKIN EVERY MORNING. WEEKS 5+: PLACE TWO PATCHES ON SKIN EVERY MORNING. aspirin EC 2021-0 3- No [id number] 81mg QD Take 1 UT 81 MG EC 2-16 02-17 tablet (81 Heal th tablet 00:00: 05:59 mg total) 00 :00 by mouth 1 (one) time each day. aspirin EC 2021-0 3- No [id number] 81mg QD Take 1 UT 81 MG EC 2-16 02-17 tablet (81 Heal th tablet 00:00: 05:59 mg total) 00 :00 by mouth 1 (one) time each day. aspirin EC 2021-0 3- No [id number] 81mg QD Take 1 UT 81 MG EC 2-16 02-17 tablet (81 Heal th tablet 00:00: 05:59 mg total) 00 :00 by mouth 1 (one) time each day. Ofev 100 MG 2021-0 Yes 1{capsu Q.5D Take 1 U T capsule 2-04 le} capsule by Health 00:00: mouth 2 00 (two) times a day. Ofev 100 MG 2021-0 Yes 1{capsu Q.5D Take 1 U T capsule 2-04 le} capsule by Health 00:00: mouth 2 00 (two) times a day. Ofev 100 MG 2021-0 Yes 1{capsu Q.5D Take 1 U T capsule 2-04 le} capsule by Health 00:00: mouth 2 00 (two) times a day. metoprolol 2020-0 Yes 25mg QD Take 25 mg U T succinate 8-26 by mouth 1 Heal th XL 00:00: (one) time (Toprol-XL) 00 each day. 25 MG 24 hr tablet metoprolol 2020-0 Yes 25mg QD Take 25 mg U T succinate 8-26 by mouth 1 Heal th XL 00:00: (one) time (Toprol-XL) 00 each day. 25 MG 24 hr tablet metoprolol Yes 25mg QD Take 25 mg U T succinate 8-26 by mouth 1 Heal th XL 00:00: (one) time (Toprol-XL) 00 each day. 25 MG 24 hr tablet rivastigmin 2021- No 1{patch QD Place 1 [place] e (Exelon) 03-30 } patch on Heal th 4.6 MG/24HR 00:00: 00:00 the skin 1 00 :00 (one) time each day. Vital Signs Vital Name Observation Time Observation Value Comments Source Systolic blood pressure 2021-11-03 16:08:00 126 mm[Hg] [facility] Diastolic blood pressure 2021-11-03 16:08:00 77 mm[Hg] [facility] Heart rate 2021-11-03 16:08:00 82 /min [facility] Body temperature 2021-11-03 16:08:00 36.39 Teena [facility] Body height 2021-11-03 16:08:00 188 cm [facility] Body weight 2021-11-03 16:08:00 86.728 kg [facility] BMI 2021-11-03 16:08:00 24.55 kg/m2 [facility] Oxygen saturation in 2021-11-03 16:08:00 97 /min [facility] Arterial blood by Pulse oximetry Procedures This patient has no known procedures. Encounters Start End Encounter Admission Attending Care Care Encounter Source Date/Time Date/Time Type Type Clinicians Facility Department ID 2022-02-01 [facility] [id number] [place] 01:05:26 FEI [id number] [facility] 2022-01-28 Outpatient JOHAN [facility] [id number] [place] 14:39:13 FEI [id number] [facility] 2022-01-27 Outpatient JOHAN [facility] [id number] [place] 16:10:12 FEI [id number] [facility] 2022-01-25 Outpatient JOHAN [facility] [id number] [place] 16:10:02 FEI [id number] [facility] 2022-01-17 Outpatient JOHAN [facility] [id number] [place] 10:56:26 FEI [id number] [facility] 2021-12-02 Outpatient ABBEY, [facility] [id number] [place] 10:28:04 COLT [facility] 2021-11-17 Outpatient JOHAN, [facility] [id number] [place] 17:55:26 On license of [facility] 2022-01-13 2022-01-13 Telephone ANMOL Fields BBSSiddhartha [id number] [place] 00:00:00 00:00:[id number] [facility] [id number] 2021-12-15 2021-12-15 Outpatient [facility] [id number] [place] 00:00:00 00:00:00 MOHAMED 175 Method i 2021-12-13 2021-12-13 Outpatient [facility] [id number] [place] 00:00:00 00:00:00 MOHAMED 911 Method i 2021-12-13 2021-12-13 Outpatient [facility] [id number] [place] 00:00:00 00:00:00 MOHAMED 469 Method i 2021-11-17 2021-11-17 Telephone ANMOL Potter [id number] [place] 00:00:00 00:00:00 Colt SWEENEY [id number] [facility] [id number] [id number] 2021-11-03 2021-11-03 Office ANMOL POTTER [id number] [place] 10:00:00 11:00:00 Visit COLT [id number] He [facility] [id number] [id number] 2021-08-02 2021-08-02 Outpatient ALFORD, [facility] [id number] [place] 00:00:00 00:00:00 BALTAZAR 933 Method i 2021-06-21 2021-06-21 Outpatient ALFORD, [facility] [id number] [place] 00:00:00 00:00:00 BALTAZAR 535 Method i 2020-11-23 2020-11-23 Patient Rolando [facility] [id number] 00:00:00 00:00:00 Outreach Blaze MAAME [id number] Chago [facility] [id number] PAVILLION [id number] 2020-11-16 2020-11-16 Telephone Cassidy [facility] [id number] 00:00:00 00:00:00 Ray Vogel [id number] [place] [id number] Professio [id number] nal 2 [facility] 2020-11-12 2020-11-12 [facility] [id number] 10:56:28 23:59:00 Encounter Ray Vogel [id number] [place] 4.2.7.2.686 [place] [id number] 2020-11-12 2020-11-12 Outpatient RAY CATES [facility] [id number] Univers 11:00:00 11:00:[id number] [facility] 2020-11-12 2020-11-12 Outpatient RAY CATES [facility] [id number] Univers 00:00:00 00:00:[address] [facility] 2020-11-03 2020-11-03 Outpatient RAY CATES [facility] [id number] Univers 14:00:00 14:00:[id number] [facility] 2020-10-23 2020-10-26 Office Cassidy [facility] [id number] 14:50:21 08:50:24 Visit Ray Vogel [id number] [place] [id number] Professio [id number] nal [id number] [facility] 2020-10-23 2020-10-23 Outpatient RAY CATES [facility] [id number] [facility] 14:40:00 14:40:00 RAY BENJAMIN [id number] [address]ra [facility] 2020-10-23 2020-10-23 Outpatient R RAY BENJAMIN [facility] [id number] [facility] 14:40:00 14:40:[address] [facility] 2020-10-15 2020-10-15 Outpatient [facility] [id number] [place] 00:00:00 00:00:[address] 2020-09-24 2020-09-24 Outpatient NILDA [facility] [id number] [place] 00:00:00 00:00:00 EMANUEL Osman [facility] Results Test Description Test Time Test Comments Results Result Comments Source SARS-CoV-2 (COVID-19) RNA [Presence] in Respiratory sp ecimen by 2021-12-14 03:04:50 GINNY with probe detection Test Item Value Reference Range Interpretation Comme nts SARS-CoV-2 (COVID-19) RNA [Presence] in Respiratory specimen by Not detected GINNY with probe detection (test code = 36374-8) Whether patient is employed in a healthcare setting (test code = Un known 47508-7) Whether the patient has symptoms related to condition of interest U nknown (test code = 33516-6) Whether the patient was hospitalized for condition of interest Unkn own (test code = 99389-9) Whether the patient was admitted to intensive care unit (ICU) for U nknown condition of interest (test code = 02036-4) Whether patient resides in a congregate care setting (test code = U nknown 03597-2) status (test code = 94921-9) Unknown Date and time of symptom onset (test code = 03524-5) Unknown IGG INDEX (CSF + BLOOD)2018-07-06 08:32:00 Test Item Value Reference Range Interpretation Comments SCAN RESULT (test code = 5032252) FL, LUMBAR PUNCTURE, [id number] 16:39:00Reason for Exam:->neuropathy FINAL REPORT REFERRING PHYSICIAN: [...] MDReport Verified Date/Time: 07/04/2018 16:39:42 Reading Location: [facility] C013V Neuro Reading Room CSF CELL COUNT [id number] 15:36:00 Test Item Value Reference Range Interpretation [...] (BEAKER) (test 2 code = 2678) GLUCOSE, [id number] 15:31:00 Test Item Value Reference Range Interpretation Comments GLUCOSE CSF (BEAKER) (test code = 66 mg/dL 40-70 406) PROTEIN, [id number] 15:31:00 Test Item Value Reference Range Interpretation Comments PROTEIN CSF (BEAKER) (test code = 44 mg/dL 15-45 378)
--- NOTE | 2022-02-20 11:35 | EDPHYS ---
Physician Documentation [facility] Name: Bennie Bowles Age: 71 yrs Sex: Male : 1950 Arrival Date: 02/20/2022 Time: 10:46 Bed 9 Private MD: ED Physician Rick Orona HPI: 02/20 11:30 This 71 yrs old Male presents to ER via Ambulatory with complaints of Facial eveline Swelling. 11:30 The patient presents with cellulitis of the left cheek, the patient presents with a eveline swollen area of the left cheek. Description: confluent, localized, erythematous, swollen. Onset: The symptoms/episode began/occurred 4 day(s) ago. Possible cause(s): unknown. Associated signs and symptoms: The patient has no apparent associated signs or symptoms. Severity of symptoms: At their worst the symptoms were mild, moderate, in the emergency department the symptoms are unchanged. The patient has not experienced similar symptoms in the past. Historical: - Allergies: 10:58 No Known Allergies; ph - PMHx: 10:58 Hypertensive disorder; Hypercholesterolemia; Atrial fibrillation; ph - Immunization history:: Adult Immunizations unknown. - Social history:: Smoking status: Patient denies any tobacco usage or history of. - Family history:: not pertinent. ROS: 11:30 Constitutional: Negative for fever, chills, and weight loss, Eyes: Negative for injury, eveline pain, redness, and discharge, ENT: Negative for injury, pain, and discharge, Neck: Negative for injury, pain, and swelling, Cardiovascular: Negative for chest pain, palpitations, and edema, Respiratory: Negative for shortness of breath, cough, wheezing, and pleuritic chest pain, Abdomen/GI: Negative for abdominal pain, nausea, vomiting, diarrhea, and constipation, Back: Negative for injury and pain, : Negative for injury, bleeding, discharge, and swelling, MS/Extremity: Negative for injury and deformity, Neuro: Negative for headache, weakness, numbness, tingling, and seizure, Psych: Negative for depression, anxiety, suicide ideation, homicidal ideation, and hallucinations, Allergy/Immunology: Negative for hives, rash, and allergies, Endocrine: Negative for neck swelling, polydipsia, polyuria, polyphagia, and marked weight changes, Hematologic/Lymphatic: Negative for swollen nodes, abnormal bleeding, and unusual bruising. 11:30 Skin: Positive for cellulitis, erythema, swelling, of the left cheek. Exam: 11:30 Constitutional: This is a well developed, well nourished patient who is awake, alert, eveline and in no acute distress. Eyes: Pupils equal round and reactive to light, extra-ocular motions intact. Lids and lashes normal. Conjunctiva and sclera are non-icteric and not injected. Cornea within normal limits. Periorbital areas with no swelling, redness, or edema. ENT: Nares patent. No nasal discharge, no septal abnormalities noted. Tympanic membranes are normal and external auditory canals are clear. Oropharynx with no redness, swelling, or masses, exudates, or evidence of obstruction, uvula midline. Mucous membranes moist. Neck: Trachea midline, no thyromegaly or masses palpated, and no cervical lymphadenopathy. Supple, full range of motion without nuchal rigidity, or vertebral point tenderness. No Meningismus. Chest/axilla: Normal chest wall appearance and motion. Nontender with no deformity. No lesions are appreciated. Cardiovascular: Regular rate and rhythm with a normal S1 and S2. No gallops, murmurs, or rubs. Normal PMI, no JVD. No pulse deficits. Respiratory: Lungs have equal breath sounds bilaterally, clear to auscultation and percussion. No rales, rhonchi or wheezes noted. No increased work of breathing, no retractions or nasal flaring. Abdomen/GI: Soft, non-tender, with normal bowel sounds. No distension or tympany. No guarding or rebound. No evidence of tenderness throughout. Back: No spinal tenderness. No costovertebral tenderness. Full range of motion. Male : Normal genitalia with no discharge or lesions. Skin: Warm, dry with normal turgor. Normal color with no rashes, no lesions, and no evidence of cellulitis. MS/ Extremity: Pulses equal, no cyanosis. Neurovascular intact. Full, normal range of motion. Neuro: Awake and alert, GCS 15, oriented to person, place, time, and situation. Cranial nerves II-XII grossly intact. Motor strength 5/5 in all extremities. Sensory grossly intact. Cerebellar exam normal. Normal gait. Psych: Awake, alert, with orientation to person, place and time. Behavior, mood, and affect are within normal limits. 11:30 Head/face: Noted is erythema, swelling, tenderness, that is moderate, of the left cheek. Vital Signs: 10:55 BP 123 / 64; Pulse 96; Resp 18; Temp 98.9; Pulse Ox 98% on R/A; Weight 83.91 kg; Height ph 6 ft. 1 in. (185.42 cm); 10:55 Body Mass Index 24.41 (83.91 kg, 185.42 cm) ph MDM: 11:06 Patient medically screened. eveline 11:32 Differential diagnosis: abscess, cellulitis, insect bite. Data reviewed: vital signs, [facility] nurses notes. 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 rate is 96 beats/min, rhythm is regular, Pulse oximetry: on room air is 98 %. Counseling: I had a detailed discussion with the patient and/or guardian regarding: the historical points, exam findings, and any diagnostic results supporting the discharge/admit diagnosis, lab results, radiology results, the need for outpatient follow up, for definitive care, an ENT specialist, an third rail installer. Administered Medications: 11:42 Drug: Tetanus Toxoid,Adsorbed 0.5 ml {Tv Technician: [employer]. Exp: 11/27/2023. Lot ss #: [id number]. } Route: IM; Site: right deltoid; 12:08 Follow up: Response: No adverse reaction ss 11:50 Drug: Bactroban (mupirocin) Ointment 2 % 1 application Route: Topical; Site: affected ss area; 11:50 Drug: Doxycycline 200 mg Route: PO; ss 12:08 Follow up: Response: No adverse reaction 11:50 Drug: Bactrim (trimethoprim-sulfamethoxazole) (160 mg-800 mg (DS) 1 tablet Route: PO; ss 12:08 Follow up: Response: No adverse reaction ss Disposition Summary: 02/20/22 11:34 Discharge Ordered Location: Home [facility] Problem: new eveline Symptoms: have improved eveline Condition: Stable eveline Diagnosis - Cellulitis and acute lymphangitis of face eveline Followup: eveline - With: Mina Bright MD - When: 2 - 3 days - Reason: Recheck today's complaints, Continuance of care, Re-evaluation by your physician Followup: eveline - With: Maite Griffith MD - When: 2 - 3 days - Reason: Recheck today's complaints, Re-evaluation by your physician Discharge Instructions: - Discharge Summary Sheet [facility] - Cellulitis, Adult [facility] - Cellulitis, Adult, [id number] [facility] Forms: - Medication Reconciliation Form [facility] - Thank You Letter eveline - Antibiotic Education [facility] - Prescription Opioid Use [facility] Prescriptions: - Centany 2 % Topical ointment - apply 1 application by TOPICAL route 3 times per day; 30 gram; Refills: 0, [facility] Product Selection Permitted - Doxycycline Hyclate 100 mg Oral Tablet - take 1 tablet by ORAL route every 12 hours; 20 tablet; Refills: 0, Product [facility] Selection Permitted - Valtrex 1 gram Oral tablet - take 1 tablet by ORAL route 3 times per day for 7 days; 21 tablet; Refills: 0, [facility] Product Selection Permitted - Bactrim DS 800-160 mg Oral Tablet - take 1 tablet by ORAL route every 12 hours for 10 days; 20 tablet; Refills: 0, [facility] Product Selection Permitted Signatures: Rick Orona MD MD cha Smirch, Shelby, RN RN Pratima Wilson RN RN ph
--- NOTE | 2022-02-20 11:35 | ER ---
Nurse's Notes [facility] Name: Bennie Bowles Age: 71 yrs Sex: Male : 1950 Arrival Date: 02/20/2022 Time: 10:46 Bed 9 Private MD: Diagnosis: Cellulitis and acute lymphangitis of face Presentation: 02/20 10:55 Chief complaint: Patient states: Swelling and redness to L upper lip and below L eye ph that started yesterday. Also sustained an abrasion below L eye on Monday. Coronavirus screen: Vaccine status: Patient reports receiving the 2nd dose of the covid vaccine. Ebola Screen: No symptoms or risks identified at this time. Initial Sepsis Screen: Does the patient meet any 2 criteria? No. Patient's initial sepsis screen is negative. Does the patient have a suspected source of infection? No. Patient's initial sepsis screen is negative. Risk Assessment: Do you want to hurt yourself or someone else? Patient reports no desire to harm self or others. Onset of symptoms was February 20, 2022. 10:55 Method Of Arrival: Ambulatory ph 10:55 Acuity: RACQUEL 3 ph Triage Assessment: 11:04 General: Appears in no apparent distress. comfortable, slender, well groomed, Behavior ph is calm, cooperative, appropriate for age, Denies fever, chills. Pain: Denies pain. Neuro: Level of Consciousness is awake, alert, obeys commands, Oriented to person, place, time, situation. Cardiovascular: Capillary refill < 3 seconds in bilateral fingers Patient's skin is warm and dry. Respiratory: Airway is patent Respiratory effort is even, unlabored. GI: No signs and/or symptoms were reported involving the gastrointestinal system. Derm: Skin is healthy with good turgor, Skin is pink, warm \T\ dry. redness and swelling noted in L cheek above L upper lip, abrasion that is scabbed over also noted below L eye. Musculoskeletal: Circulation, motion, and sensation intact. Range of motion: intact in all extremities. Historical: - Allergies: : No Known Allergies; ph - PMHx: : Hypertensive disorder; Hypercholesterolemia; Atrial fibrillation; ph - Immunization history:: Adult Immunizations unknown. - Social history:: Smoking status: Patient denies any tobacco usage or history of. - Family history:: not pertinent. Screenin:06 Abuse screen: Denies threats or abuse. Denies injuries from another. Nutritional ph screening: No deficits noted. Tuberculosis screening: No symptoms or risk factors identified. Fall Risk None identified. Assessment: 11:06 General: SEE TRIAGE ASSESSMENT. ph 12:06 Reassessment: Patient appears in no apparent distress at this time. Patient and/or ss family updated on plan of care and expected duration. Pain level reassessed. Patient is alert, oriented x 3, equal unlabored respirations, skin warm/dry/pink. Vital Signs: 10:55 BP 123 / 64; Pulse 96; Resp 18; Temp 98.9; Pulse Ox 98% on R/A; Weight 83.91 kg; Height ph 6 ft. 1 in. (185.42 cm); 10:55 Body Mass Index 24.41 (83.91 kg, 185.42 cm) ph ED Course: 10:46 Patient arrived in ED. rg4 10:58 Triage completed. ph 10:59 Arm band placed on Patient placed in an exam room. ph 11:04 Pratima Wilson, RN is Primary Nurse. ph 11:06 Rick Orona MD is Attending Physician. eveline 11:06 Patient has correct armband on for positive identification. Placed in gown. Call light ph in reach. Door closed. Noise minimized. Warm blanket given. 11:33 Mina Bright MD is Referral Physician. eveline 11:33 Maite Griffith MD is Referral Physician. eveline 11:50 No provider procedures requiring assistance completed. Patient did not have IV access ss during this emergency room visit. Administered Medications: 11:42 Drug: Tetanus Toxoid,Adsorbed 0.5 ml {Factory Maintenance Manager: [employer]. Exp: 11/27/2023. Lot ss #: [id number]. } Route: IM; Site: right deltoid; 12:08 Follow up: Response: No adverse reaction 11:50 Drug: Bactroban (mupirocin) Ointment 2 % 1 application Route: Topical; Site: affected ss area; 11:50 Drug: Doxycycline 200 mg Route: PO; ss 12:08 Follow up: Response: No adverse reaction 11:50 Drug: Bactrim (trimethoprim-sulfamethoxazole) (160 mg-800 mg (DS) 1 tablet Route: PO; ss 12:08 Follow up: Response: No adverse reaction ss Medication: 12:06 Vaccine Information Statement (VIS) provided today. Questions and/or concerns ss addressed. VIS edition date: April 23, 2021. Outcome: 11:34 Discharge ordered by . eveline 11:50 Condition: good ss 11:50 Instructed on discharge instructions, follow up and referral plans. medication usage. 12:06 Discharged to home ambulatory. 12:08 Patient left the ED. ss Signatures: Rick Orona MD MD cha Smirch, Shelby, RN RN Pratima Wilson RN RN Abhishek, Jesusita rg4
[2022-02-20] MEDS ORDERED: SMZ./TMP. 800/160 MG TABLET ONE (11:41)
[2022-02-20] MEDS ORDERED: DOXYCYCLINE 100 MG CAP PO ONE (11:41)
[2022-02-20] MEDS ORDERED: MUPIROCIN 2% OINT 22GM TUBE TOP ONE (11:42)
[2022-02-20] MEDS ORDERED: TETANUS & DIPHTHERIA TOX,ADULT 0.5 ML VIAL ONE (11:42)
[2022-02-20 12:15] VITALS: BP 123/64; TEMP 98.9; O2SAT 98
== END 2022-02-20 12:08 | disposition home or self-care (01) ==
LOC: ER 10:44
DX: L03.211 Cellulitis of face (principal); I89.1 Lymphangitis; I10 Essential (primary) hypertension; I48.91 Unspecified atrial fibrillation; E78.00 Pure hypercholesterolemia, unspecified; Z23 Encounter for immunization
CPT/HCPCS: 90471; 90714; 99283

== ENCOUNTER 2024-02-13 15:11 | Emergency (ER) | payer OTHER ==
[2024-02-13] MEDS ORDERED: NA CHLORIDE 0.9% 1,000 ML ONE (16:15)
--- NOTE | 2024-02-13 16:46 | RAD REPORT ---
EXAM DESCRIPTION: Janice Single View02/13/2024 3:59 pm CLINICAL HISTORY: Chest pain COMPARISON: 2021 FINDINGS: Bilateral interstitial lung opacities without change likely scarring Lungs appear clear acute infiltrate. The heart is normal size IMPRESSION: No acute abnormalities displayed
[2024-02-13 17:37] LABS: Absolute Lymphocytes (CBC) 1.1 K/uL (0.7-4.9); Absolute Neutrophil 5.9 K/uL (1.8-8.0); Basophils % 0.4 % (0-1.3); Eosinophils % 0.4 % (0-4.4); Hematocrit 42.9 % (39.6-49.0); Hemoglobin 14.7 g/dL (13.6-17.9); Lymphocytes % 13.9 % (15.3-44.8); MCH 31.9 pg (27.0-35.0); MCHC 34.2 g/dL (32.0-36.0); MCV 93.4 fL (80-100); MPV 8.6 fL (7.6-11.3); Monocytes % 12.8 % (3.3-12.3); Neutrophils % 72.5 % (41.7-73.7); Nucleated Red Blood Cells % 0.1 % (0-0); Platelets 161 thou/uL (152-406); RBC Red Blood Cell Count 4.59 M/uL (4.33-5.43); Red Cell Distribution Width 14.3 % (12.1-15.2)
[2024-02-13 17:44] LABS: Specific Gravity 1.029 (1.005-1.030); Sqamous Epithelial <5 /HPF (None Seen); Urine Bacteria None Seen /HPF (<20); Urine Bilirubin NEGATIVE (Negative); Urine Blood Negative (Negative); Urine Clarity Clear (Clear); Urine Color Yellow (Yellow); Urine Culture Reflex Order NOT NEEDED; Urine Glucose NEGATIVE (Negative); Urine Ketones 1+ (Negative); Urine Microscopic Reflex YN ORDER UMIC; Urine Mucus 2+ /HPF (None Seen); Urine Nitrite NEGATIVE (Negative); Urine Protein 1+ (Negative); Urine RBC <5 /HPF (None Seen); Urine Urobilinogen 1+ (Normal); Urine WBC <5 /HPF (<5); Urine pH 5.5 (5.0-7.0)
[2024-02-13 17:45] LABS: Anion Gap 7.7 mEq/L (5.0-15.0); Potassium 3.7 mEq/L (3.5-5.1)
--- NOTE | 2024-02-13 18:11 | ER ---
Nurse's Notes [facility] Name: Bennie Bowles Age: 73 yrs Sex: Male : 1950 Arrival Date: 02/13/2024 Time: 15:11 Bed 19 Private MD: Diagnosis: Other malaise and fatigue;Fever, unspecified;Dehydration Presentation: 02/12 15:30 Chief complaint: Spouse and/or significant other states: patient's reports that ap3 the patient has been sleeping more than his typical self. patient's reports the patient stayed in the bed most of the day yesterday. Coronavirus screen: At this time, the client does not indicate any symptoms associated with coronavirus-19. Ebola Screen: No symptoms or risks identified at this time. Initial Sepsis Screen: Does the patient meet any 2 criteria? HR > 90 bpm. Does the patient have a suspected source of infection? No. Patient's initial sepsis screen is negative. Risk Assessment: Do you want to hurt yourself or someone else? Patient reports no desire to harm self or others. Onset of symptoms was February 12, 2024. 15:30 Method Of Arrival: Ambulatory ap3 15:30 Acuity: RACQUEL 3 ap3 Triage Assessment: 15:33 General: Appears in no apparent distress. Behavior is calm, cooperative, Reports ap3 fatigue for. Pain: Denies pain. Neuro: Level of Consciousness is awake, alert, obeys commands, Oriented to person, place, time, situation, Gait is steady, Speech is normal. Neuro: Reports increased fatigue . Cardiovascular: Patient's skin is warm and dry. Respiratory: Airway is patent Respiratory effort is even, unlabored, Respiratory pattern is regular, symmetrical. Historical: - Allergies: 15:33 No Known Allergies; ap3 - PMHx: 15:33 Atrial fibrillation; Hypercholesterolemia; Hypertensive disorder; ap3 - Immunization history:: Client reports receiving the 2nd dose of the Covid vaccine. - Infectious Disease History:: Denies. - Social history:: Smoking status: Patient denies any tobacco usage or history of. - Family history:: not pertinent. - Hospitalizations: : No recent hospitalization is reported. Screenin:34 Abuse screen: Denies threats or abuse. Nutritional screening: No deficits noted. ap3 Tuberculosis screening: No symptoms or risk factors identified. 18:27 [facility] ED Fall Risk Assessment (Adult) History of falling in the last 3 months, ph including since admission No falls in past 3 months (0 pts) Confusion or Disorientation No (0 pts) Intoxicated or Sedated No (0 pts) Impaired Gait No (0 pts) Mobility Assist Device Used No (0 pt) Altered Elimination No (0 pt) Score/Fall Risk Level 0 - 2 = Low Risk Oriented to surroundings, Maintained a safe environment, Hourly rounding (assess needs \T\ fall precautionary measures) done. Assessment: 17:05 General: Appears in no apparent distress. comfortable, well groomed, Behavior is calm, ph cooperative, appropriate for age, Reports fatigue for 12-24 hours, Denies fever, feeling ill. Pain: Denies pain. Neuro: Level of Consciousness is awake, alert, obeys commands, Oriented to person, place, time, situation. Respiratory: Airway is patent Respiratory effort is even, unlabored, Denies cough, shortness of breath. GI: No signs and/or symptoms were reported involving the gastrointestinal system. : No signs and/or symptoms were reported regarding the genitourinary system. EENT: No signs and/or symptoms were reported regarding the EENT system. Derm: Skin is pink, warm \T\ dry. Musculoskeletal: Circulation, motion, and sensation intact. Range of motion: intact in all extremities. Vital Signs: 15:30 BP 103 / 78; Pulse 91; Resp 18; Temp 100.1(O); Weight 79.38 kg; ap3 18:15 BP 123 / 58; Pulse 85; Resp 18; Temp 98.7; Pulse Ox 98% on R/A; ph ED Course: 15:17 Patient arrived in ED. mg5 15:26 Byron Moreno MD is Attending Physician. rn 15:33 Triage completed. ap3 15:34 Arm band placed on right wrist. ap3 15:46 Pratima Wilson, RN is Primary Nurse. ph 16:00 XRAY Chest (1 view) In Process Unspecified. EDMS 16:30 Patient has correct armband on for positive identification. Bed in low position. Call ph light in reach. Side rails up X 1. Pulse ox on. NIBP on. Door closed. Noise minimized. Warm blanket given. Pillow given. 17:10 Initial lab(s) drawn, by me, sent to lab. Urine collected:. Inserted saline lock: 22 ph gauge in left antecubital area, using aseptic technique. Blood collected. 17:11 Basic Metabolic Panel Sent. ph 17:11 CBC with Diff Sent. ph 17:11 Urinalysis w/ reflexes Sent. ph 18:10 Mina Bright MD is Referral Physician. rn 18:26 No provider procedures requiring assistance completed. IV discontinued, intact, ph bleeding controlled, No redness/swelling at site. Pressure dressing applied. Administered Medications: 17:11 Drug: NS 0.9% IV 1000 ml IV at 1000 ml once Route: IV; Rate: 1000 ml; Site: left ph antecubital; 18:15 Follow up: Response: No adverse reaction; IV Status: Completed infusion; IV Intake: ph 1000ml Medication: 18:27 VIS not applicable for this client. ph Intake: 18:15 IV: 1000ml; Total: 1000ml. ph Outcome: 18:10 Discharge ordered by MD. rn 18:27 Discharged to home ambulatory, with significant other, ph 18:27 Condition: good 18:27 Condition: good 18:27 Discharge instructions given to patient, significant other, Instructed on discharge instructions, follow up and referral plans. Demonstrated understanding of instructions, follow-up care, 18:27 Patient left the ED. ph Signatures: Dispatcher [employer] EDMS Byron Moreno MD MD rn Hall, Patricia, RN RN ph Prokisch, Amanda, RN RN [facility] Arvin [facility]5
--- NOTE | 2024-02-13 18:11 | EDPHYS ---
Physician Documentation [facility] Name: Bennie Bowles Age: 73 yrs Sex: Male : 1950 Arrival Date: 02/13/2024 Time: 15:11 Bed 19 Private MD: ED Physician Byron Moreno HPI: 02/12 15:50 This 73 yrs old Male presents to ER via Ambulatory with complaints of Sent By Dr. rn 15:50 Patient reports generalized weakness and malaise for 2 days.. rn 16:58 Onset: The symptoms/episode began/occurred 2 day(s) ago. Severity of symptoms: At their rn worst the symptoms were moderate in the emergency department the symptoms have improved. The patient has not experienced similar symptoms in the past. states patient has been sleeping a lot for the last 2 days. Low-grade temperature. Reports runny nose and cough. No shortness of breath. No trauma. No focal pain. No abdominal pain or vomiting or diarrhea. Sent in by PCP for evaluation. states treated for walking pneumonia 2 weeks ago and was improving.. Historical: - Allergies: 15:33 No Known Allergies; ap3 - PMHx: 15:33 Atrial fibrillation; Hypercholesterolemia; Hypertensive disorder; ap3 - Immunization history:: Client reports receiving the 2nd dose of the Covid vaccine. - Infectious Disease History:: Denies. - Social history:: Smoking status: Patient denies any tobacco usage or history of. - Family history:: not pertinent. - Hospitalizations: : No recent hospitalization is reported. ROS: 16:58 Constitutional: Positive low-grade fever ENT: Positive for sneezing and congestion rn Neck: Negative for injury, pain, and swelling, Cardiovascular: Negative for chest pain, palpitations, and edema, Respiratory: Negative for shortness of breath, cough, wheezing, and pleuritic chest pain, Abdomen/GI: Negative for abdominal pain, nausea, vomiting, diarrhea, and constipation, MS/Extremity: Negative for injury and deformity, Skin: Negative for injury, rash, and discoloration, Neuro: Positive for generalized weakness and malaise Exam: 16:58 Constitutional: This is a well developed, well nourished patient who is awake, alert, rn and in no acute distress. Head/Face: Normocephalic, atraumatic. ENT: Dry mucous membranes Cardiovascular: Regular rate and rhythm. No pulse deficits. Respiratory: No increased work of breathing, no retractions or nasal flaring. Abdomen/GI: Soft, non-tender MS/ Extremity: Pulses equal, no cyanosis. Neuro: Awake and alert, GCS 15, oriented to person, place, and situation. Cranial nerves II-XII grossly intact. Motor strength 5/5 in all extremities. Sensory grossly intact. Cerebellar exam normal. Normal gait. Vital Signs: 15:30 BP 103 / 78; Pulse 91; Resp 18; Temp 100.1(O); Weight 79.38 kg; ap3 18:15 BP 123 / 58; Pulse 85; Resp 18; Temp 98.7; Pulse Ox 98% on R/A; ph MDM: 15:26 Patient medically screened. rn 18:09 Differential Diagnosis Pneumonia, viral illness, dehydration, UTI. Data reviewed: vital rn signs, nurses notes, lab test result(s), radiologic studies, plain films, and as a result, I will discharge patient. Management of patient was discussed with the following: Primary Care Provider: Discussed case and results with Dr. Bright, states if patient and family comfortable can go home and follow-up with him as outpatient.. Independent interpretation of the following test(s) in the Emergency Department X-Ray: My interpretation is Chest x-ray images negative for mid pneumonia per my interpretation. Care significantly affected by the following chronic conditions: Hypertension, Dementia. Counseling: I had a detailed discussion with the patient and/or guardian regarding the historical points, exam findings, and any diagnostic results supporting the discharge/admit diagnosis, lab results, radiology results, the need for outpatient follow up, to return to the emergency department if symptoms worsen or persist or if there are any questions or concerns that arise at home. Response to treatment: the patient's symptoms have mildly improved after treatment, and as a result, I will discharge patient. Special discussion: I discussed with the patient/guardian in detail that at this point there is no indication for admission to the hospital. It is understood, however, that if the symptoms persist or worsen the patient needs to return immediately for re-evaluation. ED course: No acute findings and workup today. Patient has been alert with normal vital signs other than low-grade temperature. Improved after IV fluids. Could have early viral illness. I have personally reviewed all of the results, including but not limited to blood tests and imaging deemed necessary to safely discharge this patient at this time. All results given to and printed out for patient. I personally went over all the results with the patient and answered all questions. Patient will follow-up with PCP and or specialist as discussed. Return precautions given and understood.. 02/12 15:39 Order name: SARS-COV-2 RT PCR; Complete Time: 17:31 rn 02/12 15:39 Order name: Flu; Complete Time: 17:31 rn 02/12 15:39 Order name: CBC with Diff; Complete Time: 17:44 rn 02/12 15:39 Order name: Basic Metabolic Panel; Complete Time: 17:45 rn 02/12 15:39 Order name: Urinalysis w/ reflexes; Complete Time: 17:45 rn 02/12 15:39 Order name: XRAY Chest (1 view); Complete Time: 16:50 rn 02/12 15:39 Order name: IV Start; Complete Time: 17:11 rn Administered Medications: 17:11 Drug: NS 0.9% IV 1000 ml IV at 1000 ml once Route: IV; Rate: 1000 ml; Site: left ph antecubital; 18:15 Follow up: Response: No adverse reaction; IV Status: Completed infusion; IV Intake: ph 1000ml Disposition Summary: 02/13/24 18:10 Discharge Ordered Notes: Location: Home rn Problem: new rn Symptoms: have improved rn Condition: Stable rn Diagnosis - Other malaise and fatigue rn - Fever, unspecified rn - Dehydration rn Followup: rn - With: Mina Bright MD - When: As needed - Reason: Recheck today's complaints, Re-evaluation by your physician Discharge Instructions: - Discharge Summary Sheet rn - Dehydration, Elderly rn - Fever, Adult rn Forms: - Medication Reconciliation Form rn - Antibiotic furnace maintenance - Prescription Opioid Use rn - Patient Portal Instructions rn - Leadership Thank You Letter rn Signatures: Dispatcher [employer] EDByron Burrows MD MD rn Hall, Patricia, RN RN ph Prokisch, Amanda, RN RN ap3 Corrections: (The following items were deleted from the chart) 15:40 15:40 Chest Single View+[email or web address] ordered. EDMS EDMS
[2024-02-13 18:51] VITALS: BP 123/58; TEMP 98.7; O2SAT 98
== END 2024-02-13 18:27 | disposition home or self-care (01) ==
LOC: ER 15:11
DX: E86.0 Dehydration (principal); R50.9 Fever, unspecified; R53.83 Other fatigue; Z11.52 Encounter for screening for COVID-19
CPT/HCPCS: 85025; 81001; 80048; 36415; 87635; 87804 ×2; 71045; 96360; 99284; J7030

== ENCOUNTER 2024-06-25 07:20 | Day surgery (SDC) | payer OTHER ==
[2024-06-25 07:47] LABS: Absolute Eosinophils 0.1 K/uL (0-0.5); Absolute Lymphocytes (CBC) 1.8 K/uL (0.7-4.9); Absolute Monocytes 0.6 K/uL (0.1-1.3); Absolute Neutrophil 3.5 K/uL (1.8-8.0); Basophils % 0.5 % (0-1.3); Eosinophils % 1.7 % (0-4.4); Hematocrit 46.5 % (39.6-49.0); Hemoglobin 15.4 g/dL (13.6-17.9); MCH 30.8 pg (27.0-35.0); MCHC 33.2 g/dL (32.0-36.0); MPV 8.6 fL (7.6-11.3); Neutrophils % 57.8 % (41.7-73.7); Platelets 157 thou/uL (152-406); Red Cell Distribution Width 13.5 % (12.1-15.2)
[2024-06-25 07:55] LABS: PT Prothrombin Time 11.1 SECONDS (9.4-12.5); Protime INR 0.99
[2024-06-25 08:07] VITALS: BMI 23.5
[2024-06-25 08:08] LABS: Albumin 2.8 g/dL (3.4-5.0); Albumin/Globulin Ratio 0.9 (1.1-1.8); Anion Gap 5.7 mEq/L (5.0-15.0); Bilirubin Direct 0.2 mg/dL (0-0.2); Bilirubin Indirect, Calculated 0.5 mg/dL (0.2-0.8); Bilirubin Total 0.7 mg/dL (0.2-1.0); Potassium 3.7 mEq/L (3.5-5.1); Protein, Total 5.8 g/dL (6.4-8.2)
[2024-06-25 10:44] LABS: CSF Glucose 69 mg/dL (40-70)
[2024-06-25 11:28] LABS: Appearance CLEAR (CLEAR); Body Fluid Source CSF; Color of Supernate Not Xanthochromic (Not Xantho); Color of fluid Colorless (COLORLESS); Fluid Total Volume 13.5 ml; Tube # #2
[2024-06-25 11:29] LABS: Body Fluid WBC 1 /mm^3
[2024-06-25 11:35] VITALS: O2SAT 100
[2024-06-25 11:37] VITALS: TEMP 97.4
[2024-06-25 14:22] VITALS: BP 114/67
--- NOTE | 2024-06-25 17:26 | RAD REPORT ---
XR SPINE LUMBAR PUNCTURE CLINICAL INDICATION: Memory loss TECHNIQUE: The risks (including the risks of bleeding, infection, headache, nerve injury), benefits, and alternatives of the procedure were carefully explained to the patient who wished to proceed. Informed written consent was obtained . The patient was placed prone into the fluoroscopy suite. Skin and subcutaneous tissues were dissected with lidocaine Under fluoroscopic guidance a 22-gauge spinal needle was advanced into the thecal sac L2-3 Approximately 14 cc CSF removed and sent to the lab. Complications: None Fluoroscopy time 0.6 minutes One fluoroscopic spot image obtained IMPRESSION: Lumbar puncture
== END 2024-06-25 12:00 | disposition home or self-care (01) ==
LOC: RAD 07:20 → DS 12:00
PROVIDERS: ATTEND Psychiatry & Neurology Neurology with Special Qualifications in Child Neurology
PROC: 009U3ZX Drainage of Spinal Canal, Percutaneous Approach, Diagnostic (ICD-10-PCS; principal; 2024-06-25)
PROC: B01BZZZ Fluoroscopy of Spinal Cord (ICD-10-PCS; 2024-06-25)
DX: G30.9 Alzheimer's disease, unspecified (principal); F32.9 Major depressive disorder, single episode, unspecified; J84.10 Pulmonary fibrosis, unspecified
CPT/HCPCS: 36415; 62328; 77003; 80048; 80076; 82542; 82945; 84157; 85025; 85610; 85730; 89050

== ENCOUNTER 2025-02-09 09:54 | Observation (INO) | payer OTHER ==
[2025-02-09] MEDS ORDERED: FAMOTIDINE 20 MG/2 ML VIAL IV ONE (10:12)
[2025-02-09] MEDS ORDERED: ONDANSETRON 4 MG/2 ML VIAL ONE (10:12)
[2025-02-09] MEDS ORDERED: NA CHLORIDE 0.9% 1,000 ML ONE (10:12)
[2025-02-09] MEDS ORDERED: LORazepam 2 MG/ML VIAL ONE (10:35)
[2025-02-09] MEDS ORDERED: PROMETHAZINE INJ 25 MG/ML AMP ONE (10:35)
[2025-02-09 10:44] LABS: Absolute Lymphocytes (CBC) 1.5 K/uL (0.7-4.9); Absolute Monocytes 0.5 K/uL (0.1-1.3); Absolute Neutrophil 3.7 K/uL (1.8-8.0); Basophils % 0.5 % (0-1.3); Eosinophils % 0.7 % (0-4.4); Hematocrit 45.8 % (39.6-49.0); Hemoglobin 15.6 g/dL (13.6-17.9); Lymphocytes % 25.9 % (15.3-44.8); MCH 31.5 pg (27.0-35.0); MCHC 34.2 g/dL (32.0-36.0); MCV 92.2 fL (80-100); Monocytes % 8.8 % (3.3-12.3); Neutrophils % 64.1 % (41.7-73.7); Nucleated Red Blood Cells % 0.1 % (0-0); Platelets 171 thou/uL (152-406); RBC Red Blood Cell Count 4.96 M/uL (4.33-5.43); Red Cell Distribution Width 13.9 % (12.1-15.2)
[2025-02-09 10:49] LABS: PT Prothrombin Time 11.6 SECONDS (10-13.0); Protime INR 1.02
[2025-02-09 11:02] LABS: Albumin 2.7 g/dL (3.4-5.0); Albumin/Globulin Ratio 0.8 (1.1-1.8); Anion Gap 9.7 mEq/L (5.0-15.0); Bilirubin Direct 0.2 mg/dL (0-0.2); Bilirubin Indirect, Calculated 0.6 mg/dL (0.2-0.8); Bilirubin Total 0.8 mg/dL (0.2-1.0); Globulin 3.4 g/dL (2.3-3.5); Magnesium 1.6 mg/dL (1.6-2.4); Potassium 3.7 mEq/L (3.5-5.1); Protein, Total 6.1 g/dL (6.4-8.2); Troponin High Sensitivity 5.4 pg/mL (<58.9)
--- NOTE | 2025-02-09 12:50 | RAD REPORT ---
EXAM: CT CHEST, ABDOMEN AND PELVIS WITHOUT CONTRAST CLINICAL INDICATION: Male, 74 years old. [facility] MAIN Trauma;Syncope Bed Name: 2 TECHNIQUE: CT chest, abdomen and pelvis was performed, without IV contrast, as per department protoco l. Axial, sagittal and coronal reconstructions were obtained. One or more of the following dose reduction techniques were used: Automated exposure control, adjustment of the mA and/or kV according to the patient size, and/or iterative reconstruction. Unless otherwise specified, incidental findings do not require dedicated imaging follow-up. COMPARISON: 11/25/2020 FINDINGS: The lack of intravenous contrast limits the sensitivity of this exam for evaluation of solid visceral organs, vascular structures, and retroperitoneum. Chest: LOWER NECK/CHEST WALL: Visualized thyroid gland and soft tissues are normal. LUNGS AND AIRWAYS: Airways are clear. Peripheral reticular opacities, basal predominant, without noah ycombing, stable since 2020. No suspicious nodules. PLEURA: No pleural effusion. No pneumothorax. Hemidiaphragms are normally positioned. MEDIASTINUM AND LYMPH NODES: No mediastinal mass or fluid collection. Normal size mediastinal, hilar, and axillary lymph nodes. THORACIC AORTA: Normal caliber and configuration. PULMONARY ARTERIES: Normal caliber. HEART: Unremarkable. Abdomen/Pelvis LIVER: Normal in size and contour. No focal lesion. GALLBLADDER/BILE DUCTS: No biliary ductal dilatation. PANCREAS: No mass, ductal dilation, or eloina-pancreatic fluid. SPLEEN: Normal size. No focal lesion. ADRENALS: Normal; no mass. KIDNEYS AND URETERS: Normal size and contour. No hydronephrosis. GASTROINTESTINAL TRACT: Stomach is non-dilated. Small bowel has normal course and caliber. No colonic wall thickening or pericolonic inflammatory changes. PERITONEUM: No free fluid. LYMPH NODES: No lymphadenopathy. ABDOMINAL AORTA AND OTHER VESSELS: Normal caliber aorta and IVC. URINARY BLADDER: Normal contour. REPRODUCTIVE ORGANS: No pathologic process. MUSCULOSKELETAL: No acute or suspicious osseous abnormality. ADDITIONAL FINDINGS: Small left inguinal hernia containing fat IMPRESSION: No acute or traumatic abnormalities in the chest, abdomen, or pelvis. Incidental findings as above including chronic interstitial lung changes, stable since 2020
--- NOTE | 2025-02-09 12:53 | ER ---
Nurse's Notes [facility] Name: Bennie Bowles Age: 74 yrs Sex: Male : 1950 Arrival Date: 02/09/2025 Time: 09:54 Bed 2 Private MD: Diagnosis: Syncope Near;Altered mental status, unspecified;Weakness;Fall on same level, unspecified Presentation: 02/09 10:04 Chief complaint: EMS states: toned out to patient home due to fall in shower. ld1 reports patient stating "I am feeling dizzy." pulled makeup chair up to shower for patient to sit on - pt slide down onto buttocks - did not hit head. Not on blood thinners. Coronavirus screen: At this time, the client does not indicate any symptoms associated with coronavirus-19. Ebola Screen: No symptoms or risks identified at this time. Initial Sepsis Screen: Does the patient meet any 2 criteria? No. Patient's initial sepsis screen is negative. Does the patient have a suspected source of infection? No. Patient's initial sepsis screen is negative. Risk Assessment: Do you want to hurt yourself or someone else? Patient reports no desire to harm self or others. Onset of symptoms was February 09, 2025 at 10:05. 10:04 Method Of Arrival: EMS: [facility] ld1 10:04 Acuity: RACQUEL 2 ld1 Triage Assessment: 10:06 General: Appears in no apparent distress. comfortable, Behavior is calm, cooperative, ld1 appropriate for age. Pain: Denies pain. EENT: No signs and/or symptoms were reported regarding the EENT system. Neuro: Level of Consciousness is awake, alert, obeys commands, Oriented to person, place, time, situation, Reports a syncopal episode. Cardiovascular: Capillary refill < 3 seconds Patient's skin is warm and dry. Rhythm is sinus rhythm. Respiratory: Airway is patent Respiratory effort is even, unlabored. GI: Abdomen is flat, non-distended. : No signs and/or symptoms were reported regarding the genitourinary system. Derm: No signs and/or symptoms reported regarding the dermatologic system. Musculoskeletal: No signs and/or symptoms reported regarding the musculoskeletal system. Historical: - Allergies: 10:06 No Known Allergies; ld1 - PMHx: 10:06 Atrial fibrillation; Hypercholesterolemia; Hypertensive disorder; ld1 - Immunization history:: Adult Immunizations up to date. - Infectious Disease History:: Denies. - Social history:: Smoking status: Patient denies any tobacco usage or history of. - Family history:: not pertinent. Screenin:07 [facility] ED Fall Risk Assessment (Adult) History of falling in the last 3 months, ld1 including since admission Yes- single mechanical fall (1 pt) Confusion or Disorientation No (0 pts) Intoxicated or Sedated No (0 pts) Impaired Gait No (0 pts) Mobility Assist Device Used No (0 pt) Altered Elimination No (0 pt) Score/Fall Risk Level 0 - 2 = Low Risk Oriented to surroundings, Hourly rounding (assess needs \\T\\ fall precautionary measures) done. Abuse screen: Denies threats or abuse. Denies injuries from another. Nutritional screening: No deficits noted. Tuberculosis screening: No symptoms or risk factors identified. Assessment: 10:07 Reassessment: See triage assessmnet. Neuro: Level of Consciousness is awake, alert, ld1 obeys commands, Oriented to person, place, time, situation. Cardiovascular: Capillary refill < 3 seconds Patient's skin is warm and dry. Rhythm is sinus rhythm. 10:30 Reassessment: Patient appears in no apparent distress at this time. Pt displaying ld1 confusion - asking the same question over and over again. "Why am I here, Why am I shaking?" Applied warm blankets to patient. See [facility] for orders. at bedside. 12:00 Reassessment: Patient appears in no apparent distress at this time. No changes from ld1 previously documented assessment. 13:30 Reassessment: Patient appears in no apparent distress at this time. No changes from ld1 previously documented assessment. 15:22 Reassessment: Patient appears in no apparent distress at this time. No changes from ld1 previously documented assessment. Vital Signs: 10:04 BP 120 / 70; Pulse 65; Resp 18; Temp 97.3(TE); Pulse Ox 99% on R/A; Weight 86.18 kg; ld1 Height 6 ft. 1 in. ; Pain 0/10; 10:41 BP 120 / 78; Pulse 73; Resp 18; Pulse Ox 100% on R/A; ld1 11:00 BP 116 / 67; Pulse 66; Resp 19; Pulse Ox 100% on R/A; ld1 11:30 BP 102 / 76; Pulse 77; Resp 17; Pulse Ox 100% on R/A; ld1 13:15 BP 113 / 70; Pulse 71; Resp 15; Pulse Ox 100% on R/A; ld1 14:00 BP 129 / 73; Pulse 71; Resp 12; Pulse Ox 99% on R/A; ld1 15:23 BP 117 / 64; Pulse 77; Resp 15; Pulse Ox 96% on R/A; ld1 10:04 Body Mass Index 25.07 (86.18 kg, 185.42 cm) ld1 10:04 Pain Scale: Adult ld1 ED Course: 10:03 Patient arrived in ED. ld1 10:05 Rick Orona MD is Attending Physician. [facility] 10:05 Triage completed. ld1 10:06 Arm band placed on right wrist. ld1 10:22 XRAY Chest (1 view) In Process Unspecified. EDMS 10:23 Megan Sandoval, JULIO is Primary Nurse. ld1 11:52 Chest Abd Pelvis Wo Con In Process Unspecified. EDMS 11:52 Head C Spine Mpr Wo Con In Process Unspecified. EDMS 12:00 Patient has correct armband on for positive identification. Placed in gown. Bed in low ld1 position. Call light in reach. Side rails up X2. cyber crime investigator on. Pulse ox on. NIBP on. Door closed. Noise minimized. Warm blanket given. 12:00 Cleaned of incontinence. Linen changed. ld1 12:45 Chao cath inserted, using sterile technique, 16 Fr., returned clear yellow urine. ld1 Patient tolerated well. 12:52 David Bright MD is Hospitalizing Provider. eveline Administered Medications: 10:23 Drug: Famotidine IVP 20 mg IVP once; dilute with 10 mL 0.9% NaCl; give over 2 minutes ld1 Route: IVP; Site: right antecubital; 10:40 Follow up: Response: No adverse reaction ld1 10:23 Drug: Ondansetron IVP 4 mg IVP once; over 2 minutes Route: IVP; Site: right antecubital;ld1 10:40 Follow up: Response: No adverse reaction ld1 10:24 Drug: NS 0.9% IV 1000 ml IV at 1000 ml once; to be given as a bolus over 60 minutes ld1 Route: IV; Rate: 1000 ml; Site: right antecubital; 10:41 Follow up: Response: No adverse reaction; IV Status: Completed infusion; IV Intake: ld1 1000ml 10:40 Drug: Ativan IVP 0.5 mg IVP once Route: IVP; Site: right antecubital; ld1 10:40 Drug: Promethazine IM 12.5 mg IM once; iv fluids Route: IM; Site: affected area; ld1 13:17 Drug: Cefepime IVPB 1 grams IVPB at 200 ml/hr once over 30 mins; (mix in NS 100 mL) ld1 Route: IVPB; Rate: 200 ml/hr; Infused Over: 30 mins; Site: right antecubital; Medication: 10:07 VIS not applicable for this client. ld1 Intake: 10:41 IV: 1000ml; Total: 1000ml. ld1 Outcome: 12:52 Decision to Hospitalize by Provider. [facility] 16:00 Patient left the ED. ld1 Signatures: Dispatcher [employer] Rick Gomez MD MD cha Sims, Lauren, RN RN ld1
--- NOTE | 2025-02-09 12:53 | EDPHYS ---
Physician Documentation [facility] Name: Bennie Bowles Age: 74 yrs Sex: Male : 1950 Arrival Date: 02/09/2025 Time: 09:54 Bed 2 Private MD: ED Physician Rick Orona HPI: 02/09 12:47 This 74 yrs old Male presents to ER via EMS with complaints of Syncope. eveline 12:47 The patient has experienced near-syncope, almost passed out, felt dizzy, felt faint, eveline felt generally weak. Onset: The symptoms/episode began/occurred just prior to arrival, this morning. Duration: The patient has had multiple episodes, that last 20 second(s). Context: the episode(s) was witnessed, by family, . Associated injury: The patient did not suffer any apparent associated injury. Associated signs and symptoms: Pertinent positives: agitation, lightheadedness, nausea. Current symptoms: confusion. The patient has experienced similar episodes in the past, a few times. Historical: - Allergies: 10:06 No Known Allergies; ld1 - PMHx: 10:06 Atrial fibrillation; Hypercholesterolemia; Hypertensive disorder; ld1 - Immunization history:: Adult Immunizations up to date. - Infectious Disease History:: Denies. - Social history:: Smoking status: Patient denies any tobacco usage or history of. - Family history:: not pertinent. ROS: 12:47 Constitutional: Negative for fever, chills, and weight loss, Eyes: Negative for injury, eveline pain, redness, and discharge, ENT: Negative for injury, pain, and discharge, Neck: Negative for injury, pain, and swelling, Cardiovascular: Negative for chest pain, palpitations, and edema, Respiratory: Negative for shortness of breath, cough, wheezing, and pleuritic chest pain, Abdomen/GI: Negative for abdominal pain, nausea, vomiting, diarrhea, and constipation, Back: Negative for injury and pain, : Negative for injury, bleeding, discharge, and swelling, MS/Extremity: Negative for injury and deformity, Skin: Negative for injury, rash, and discoloration, Psych: Negative for depression, anxiety, suicide ideation, homicidal ideation, and hallucinations, Allergy/Immunology: Negative for hives, rash, and allergies, Endocrine: Negative for neck swelling, polydipsia, polyuria, polyphagia, and marked weight changes, Hematologic/Lymphatic: Negative for swollen nodes, abnormal bleeding, and unusual bruising, 12:47 Neuro: Positive for altered mental status, syncope, near syncope, weakness, Exam: 12:47 Constitutional: This is a well developed, well nourished patient who is awake, alert, eveline and in no acute distress. Head/Face: Normocephalic, atraumatic. Eyes: Pupils equal round and reactive to light, extra-ocular motions intact. Lids and lashes normal. Conjunctiva and sclera are non-icteric and not injected. Cornea within normal limits. Periorbital areas with no swelling, redness, or edema. ENT: Nares patent. No nasal discharge, no septal abnormalities noted. Tympanic membranes are normal and external auditory canals are clear. Oropharynx with no redness, swelling, or masses, exudates, or evidence of obstruction, uvula midline. Mucous membranes moist. Neck: Trachea midline, no thyromegaly or masses palpated, and no cervical lymphadenopathy. Supple, full range of motion without nuchal rigidity, or vertebral point tenderness. No Meningismus. Chest/axilla: Normal chest wall appearance and motion. Nontender with no deformity. No lesions are appreciated. Cardiovascular: Regular rate and rhythm with a normal S1 and S2. No gallops, murmurs, or rubs. Normal PMI, no JVD. No pulse deficits. Respiratory: Lungs have equal breath sounds bilaterally, clear to auscultation and percussion. No rales, rhonchi or wheezes noted. No increased work of breathing, no retractions or nasal flaring. Abdomen/GI: Soft, non-tender, with normal bowel sounds. No distension or tympany. No guarding or rebound. No evidence of tenderness throughout. Back: No spinal tenderness. No costovertebral tenderness. Full range of motion. Male : Normal genitalia with no discharge or lesions. Skin: Warm, dry with normal turgor. Normal color with no rashes, no lesions, and no evidence of cellulitis. MS/ Extremity: Pulses equal, no cyanosis. Neurovascular intact. Full, normal range of motion., bilateral aka Psych: Awake, alert, with orientation to person, place and time. Behavior, mood, and affect are within normal limits. 12:47 ECG was reviewed by the Attending Physician. 12:47 Neuro: Orientation: is normal, appropriate for stated age, no acute changes, Mentation: slow to respond, Memory: immediate memory is intact, remote memory is impaired, recent memory is intact, Cranial nerves: grossly normal, is grossly normal based on the patient's age, no acute changes, Cerebellar function: unable to test, Motor: is normal, moves all fours, Sensation: no obvious gross deficits, appropriate no acute changes, Gait: not tested. Deep tendon reflexes are 2+ (normal) in the bilateral brachioradialis, bicep, tricep and patellar and Achilles tendons, Babinski testing is normal, Vital Signs: 10:04 BP 120 / 70; Pulse 65; Resp 18; Temp 97.3(TE); Pulse Ox 99% on R/A; Weight 86.18 kg; ld1 Height 6 ft. 1 in. ; Pain 0/10; 10:41 BP 120 / 78; Pulse 73; Resp 18; Pulse Ox 100% on R/A; ld1 11:00 BP 116 / 67; Pulse 66; Resp 19; Pulse Ox 100% on R/A; ld1 11:30 BP 102 / 76; Pulse 77; Resp 17; Pulse Ox 100% on R/A; ld1 13:15 BP 113 / 70; Pulse 71; Resp 15; Pulse Ox 100% on R/A; ld1 14:00 BP 129 / 73; Pulse 71; Resp 12; Pulse Ox 99% on R/A; ld1 15:23 BP 117 / 64; Pulse 77; Resp 15; Pulse Ox 96% on R/A; ld1 10:04 Body Mass Index 25.07 (86.18 kg, 185.42 cm) ld1 10:04 Pain Scale: Adult ld1 MDM: 10:05 Medical Screening Exam initiated eveline 12:50 Differential Diagnosis: aortic aneurysm, cardiac arrhythmia, cerebrovascular accident, eveline idiopathic syncope, seizure, sepsis, transient ischemic attack, vasovagal episode. Data reviewed: vital signs, nurses notes, EMS record, lab test result(s), EKG, radiologic studies. Consideration of Admission/Observation Patient was admitted/placed on observation. Escalation of care including admission/observation considered. I considered the following discharge prescriptions or medication management in the emergency department Medications were administered in the Emergency Department. See MAR. Independent interpretation of the following test(s) in the Emergency Department EKG: See my EKG interpretation above. Test considered but Not performed: MRI: no mri brain. Historians other than the Patient: EMS: ems well informed. Spouse/Significant Other: well informed. Care significantly affected by the following chronic conditions: Hypertension, a fib , high chlesterol. 02/09 10:07 Order name: Basic Metabolic Panel; Complete Time: 12:09 [facility] 02/09 10:07 Order name: CBC with Diff; Complete Time: 12:09 [facility] 02/09 10:07 Order name: LFT's; Complete Time: 12: [facility] 02/09 10:07 Order name: Magnesium; Complete Time: 12: [facility] 02/09 10:07 Order name: NT PRO-BNP; Complete Time: 12:09 [facility] 02/09 10:07 Order name: PT-INR; Complete Time: 12: [facility] 02/09 10:07 Order name: Troponin HS; Complete Time: 12: [facility] 02/09 10:07 Order name: Lipase; Complete Time: 12:09 [facility] 02/09 10:07 Order name: UA Rfx Arnoldo Cult if indicated; Complete Time: 13:30 [facility] 02/09 10:55 Order name: Blood Culture Adult (2) 02/09 10:07 Order name: XRAY Chest (1 view) 02/09 10:14 Order name: Chest Abd Pelvis Wo Con; Complete Time: 13:00 EDMS 02/09 10:15 Order name: Head C Spine Mpr Wo Con; Complete Time: 13:00 EDMS 02/09 10:07 Order name: EKG; Complete Time: 10:07 [facility] 02/09 10:07 Order name: Cardiac monitoring; Complete Time: 10: [facility] 02/09 10:07 Order name: EKG - Nurse/Tech; Complete Time: 10:41 [facility] 02/09 10:07 Order name: IV Saline Lock; Complete Time: 10:02/09 10:07 Order name: Labs collected and sent; Complete Time: 10:24 02/09 10:07 Order name: O2 Per Protocol; Complete Time: :02/09 10:07 Order name: O2 Sat Monitoring; Complete Time: : [facility] 02/09 12:10 Order name: Misc. Order: get ua; Complete Time: 12:44 [facility] EC:47 Rate is 68 beats/min. Rhythm is regular. QRS [place] is Normal. ME interval is normal. QRS eveline interval is normal. QT interval is normal. No Q waves. No ST changes noted. Clinical impression: NSR w/ Non-specific ST/T Changes and No evidence of ischemia. Interpreted by me. Reviewed by me. Administered Medications: 10:23 Drug: Famotidine IVP 20 mg IVP once; dilute with 10 mL 0.9% NaCl; give over 2 minutes ld1 Route: IVP; Site: right antecubital; 10:40 Follow up: Response: No adverse reaction ld1 10:23 Drug: Ondansetron IVP 4 mg IVP once; over 2 minutes Route: IVP; Site: right antecubital;ld1 10:40 Follow up: Response: No adverse reaction ld1 10:24 Drug: NS 0.9% IV 1000 ml IV at 1000 ml once; to be given as a bolus over 60 minutes ld1 Route: IV; Rate: 1000 ml; Site: right antecubital; 10:41 Follow up: Response: No adverse reaction; IV Status: Completed infusion; IV Intake: ld1 1000ml 10:40 Drug: Ativan IVP 0.5 mg IVP once Route: IVP; Site: right antecubital; ld1 10:40 Drug: Promethazine IM 12.5 mg IM once; iv fluids Route: IM; Site: affected area; ld1 13:17 Drug: Cefepime IVPB 1 grams IVPB at 200 ml/hr once over 30 mins; (mix in NS 100 mL) ld1 Route: IVPB; Rate: 200 ml/hr; Infused Over: 30 mins; Site: right antecubital; Disposition Summary: 02/09/25 12:52 Hospitalization Ordered Notes: Hospitalization Status: Inpatient Admission eveline Provider: David Bright cha Location: Telemetry/MedSurg (Inpatient) eveline Condition: Fair eveline Problem: new eveline Symptoms: have improved eveline Bed/Room Type: Standard eveline Room Assignment: 205(02/09/25 15:13) sp Diagnosis - Syncope Near eveline - Altered mental status, unspecified eveline - Weakness eveline - Fall on same level, unspecified eveline Forms: - Medication Reconciliation Form eveline - SBAR form eveline - Leadership Thank You Letter eveline Signatures: Dispatcher [employer] EDMS Yeyo, Rick, MD MD eveline Marcela, Herlinda sp Sandoval, Megan, RN RN ld1 Corrections: (The following items were deleted from the chart) 10:07 10:07 Head C Spine Cap Wo Con+CT.RAD.BRZ ordered. EDMS EDMS 10:56 10:56 BLOOD CULTURE*+BA.LAB.BRZ ordered. EDMS EDMS 15:13 12:52 eveline petit
--- NOTE | 2025-02-09 12:56 | RAD REPORT ---
EXAM: CT brain without contrast HISTORY: fall COMPARISON: 11/24/2020 TECHNIQUE: Multiple contiguous axial images were obtained and a CT of the brain without contrast. Sag ittal and coronal reformats were performed. FINDINGS: No evidence of hydrocephalus, intracranial hemorrhage, or extra-axial fluid collection. Mild brain atrophy with mild periventricular and deep white matter chronic microvascular ischemic ch anges present. The calvarium is intact. The visualized paranasal sinuses and mastoid air cells are essentially clear . IMPRESSION: No evidence of acute intracranial abnormality. EXAM: CT of the cervical spine without contrast HISTORY: fall COMPARISON: None TECHNIQUE: Multiple contiguous axial images were obtained in a CT of the cervical spine without contr ast. Sagittal and coronal reformats were performed. FINDINGS: The vertebral bodies demonstrate normal height and alignment. No evidence of acute fracture or subluxation.. Mild uncovertebral joint and facet degenerative changes, contributing to mild to moderate neural foraminal narrowing most notably at C4-5 on the left. No prevertebral soft tissue sw elling is seen. The posterior facets are well aligned. Normal alignment of the skull base with the cervical spine is seen. The lung apices are unremarkable. IMPRESSION: No evidence of acute osseous abnormality of the cervical spine. Degenerative changes as above.
[2025-02-09 13:01] LABS: Specific Gravity 1.006 (1.005-1.030); Sqamous Epithelial None Seen /HPF (None Seen); Urine Bacteria None Seen /HPF (<20); Urine Bilirubin NEGATIVE (Negative); Urine Blood 1+ (Negative); Urine Clarity Clear (Clear); Urine Color Colorless (Yellow); Urine Culture Reflex Order NOT NEEDED; Urine Glucose TRACE (Negative); Urine Ketones NEGATIVE (Negative); Urine Microscopic Reflex YN ORDER UMIC; Urine Mucus Slight /HPF (None Seen); Urine Nitrite NEGATIVE (Negative); Urine Protein NEGATIVE (Negative); Urine Urobilinogen Normal (Normal); Urine WBC <5 /HPF (<5); Urine pH 6.5 (5.0-7.0)
[2025-02-09] MEDS ORDERED: NA CHLORIDE 0.9% 100 ML ONE (13:05)
[2025-02-09] MEDS ORDERED: CEFEPIME 1 GM/VIAL ONE (13:06)
--- NOTE | 2025-02-09 14:29 | RAD REPORT ---
EXAMINATION: ONE VIEW CHEST XR CLINICAL INDICATION: Male, 74 years old.,COUGH TECHNIQUE: Frontal chest projection is submitted. Examination is limited by patient positioning and t echnique. COMPARISON: 02/13/2024 FINDINGS: The lungs are hyper inflated and clear, apart from chronic peripheral and left more than right basal reticular opacity, which are stable.. No pneumothorax or sizable effusion. The heart is normal in size. Mediastinal contours are unremarkable. IMPRESSION: No acute intrathoracic abnormalities. Stable findings as above.
[2025-02-09 16:26] VITALS: BMI 24.3
[2025-02-09] MEDS ORDERED: ONDANSETRON 4 MG/2 ML VIAL IV PRN (17:23)
[2025-02-09] MEDS ORDERED: ACETAMINOPHEN 325 MG TABLET PO PRN (17:43)
[2025-02-09] MEDS: NA CHLORIDE 0.9% 1,000 ML IV SCH (18:39)
--- NOTE | 2025-02-09 23:43 | RAD REPORT ---
EXAM: US Carotid Artery Bilateral CLINICAL INDICATION: syncope TECHNIQUE: Real-time grayscale, color flow, and spectral Doppler sonographic images were obtained of the extracranial carotid system using a linear transducer. Arterial peak systolic velocities are recorded as follows. COMPARISON: No prior exam. FINDINGS: RIGHT: Common carotid artery: 69 cm/s Internal carotid artery: 77 cm/s Right ICA/CCA ratio: 1.1 Plaque Mild smooth echogenic plaque External carotid artery: 107 cm/s Vertebral artery: Antegrade LEFT: Common carotid artery: 83 cm/s Internal carotid artery: 88 cm/s Left ICA/CCA ratio: 1.1 Plaque Mild smooth echogenic plaque External carotid artery: 127 cm/s Vertebral artery: Antegrade IMPRESSION: No hemodynamically significant stenosis (greater than 50%) within the extracranial internal carotid a rteries. The degrees of stenosis, if any, are quantified according to the consensus statement of the Society o f Radiologists in Ultrasound (SRUS). Please refer to Elpidio E, Reji C, Aissatou G et al. Carotid Artery Stenosis: Tavarez-Scale and Doppler US Diagnosis--Society of Radiologists in Ultrasound Consensus Conference. Radiology. 2003;229(2):340-6. doi:10.1148/[id number]
[2025-02-10 05:39] LABS: Absolute Lymphocytes (CBC) 1.6 K/uL (0.7-4.9); Absolute Monocytes 0.8 K/uL (0.1-1.3); Absolute Neutrophil 4.9 K/uL (1.8-8.0); Basophils % 0.6 % (0-1.3); Eosinophils % 0.6 % (0-4.4); Hematocrit 43.7 % (39.6-49.0); Hemoglobin 15.3 g/dL (13.6-17.9); Lymphocytes % 21.8 % (15.3-44.8); MCHC 35.1 g/dL (32.0-36.0); MPV 8.7 fL (7.6-11.3); Nucleated Red Blood Cells % 0.1 % (0-0); Platelets 155 thou/uL (152-406); RBC Red Blood Cell Count 4.65 M/uL (4.33-5.43); Red Cell Distribution Width 14.1 % (12.1-15.2)
[2025-02-10 05:52] LABS: Anion Gap 7.8 mEq/L (5.0-15.0); Potassium 3.8 mEq/L (3.5-5.1)
[2025-02-10 08:47] VITALS: TEMP 98.1
[2025-02-10 09:48] VITALS: O2SAT 98
[2025-02-10 12:30] VITALS: BP 114/61
--- NOTE | 2025-02-10 15:21 | DS ---
Date of Discharge: 02/10/2025 Disposition: Discharged to go home. Physical Examination: HEENT: Unremarkable. Lungs: Bilateral good equal air entry. Clear to auscultation except presence of rales in lower 1/3 to lower 1/4. Lung region unchanged from baseline. Heart: Sounds normal. Abdomen: Soft. Bowel sounds normal. No guarding, rigidity, tenderness, distention. Extremities: No leg edema. Discharge Medications And Instructions: 1. Continue all prior home medications. 2. Drink about 60 ounces water daily. Hospital Course: This is a 74-year-old pleasant male patient who was admitted to the hospital yester day after he presented to emergency room with syncope. Please see dictated H and P for more informat ion. After the patient was evaluated in the emergency room, he was admitted to the hospital. Routin e blood work was done in the emergency room, which did not find any evidence of any infection includi ng there was no evidence of urinary tract infection. In the emergency room, ER physician started emp iric antibiotic, which I discontinued it as there was no reason for him to take any antibiotic withou t any evidence of infection. The patient also had a Chao catheter placed in the emergency room afte r I saw him, which I ordered it to be removed as well. This morning when I saw him, was with jonnathan donaldson at bedside. No new complaints or problems reported. The patient has late stage Alzheimer disease and during this hospitalization, his confusion has gotten worse as reported by , which is unfortu nately expected being in the hospital. He is ambulating well, going to the bathroom on his own, eati ng well. No other complaints reported. He has remained afebrile. Vital signs are stable. His last set of vital signs today; temperature 98.1, pulse 75, respiratory rate 12, blood pressure 114/61. W e did check orthostatic vital signs during this hospitalization and his supine blood pressure was 113 /57, sitting blood pressure 121/58, standing blood pressure 108/52. I did instruct the patient and t he patient's that he needs to drink about 60 ounces of water on a daily basis to try to keep him well hydrated and the patient should use a shower chair or shower bench instead of standing while ta brennon shower and after he gets done with shower, he should dry himself while in sitting position and h e should also sit while he is putting his clothes on or taking his clothes off, and this is to avoid any risk of fall and injury. The patient and his , they are in process of moving from here to [facility] and after this hospitalization, has informed me that they will basically hurry up and move closer to their children in [place], so there will not be any need for any outpatient followup visit. will contact me if anything else comes up before they moved to [place]. Laboratory Data: Upon admission . Today chemistry shows sodium 143, potassium 3.8, chlori de 111, bicarb 28, BUN 18, creatinine 1.22, glucose 105. WBC 7.4, hemoglobin 15.3, platelets 155. C arotid Doppler shows minimal plaque, no evidence of any significant stenotic lesion. Final Diagnoses: 1. Syncope. 2. Pulmonary fibrosis. 3. . 4. . Total time spent today 40 minutes. EVE/MODL Voice ID: [id number] Report ID: [id number]
--- NOTE | 2025-02-10 22:40 | HP ---
Date of Admission: 02/09/2025 Chief Complaint: Feeling weak and falling down. History Of Present Illness: This is a 74-year-old pleasant male patient who lives at home with his w braulio, was in the shower this morning, getting ready for the congregational and as he came out of the shower, solomon razo still did not have chance to dry himself up and started to feel very weak and lightheaded, so he sa t down on the floor. There was no free fall. He leaned against the bathroom door, so he did not hav e any head injury. There was no loss of consciousness. was there with him and she immediately called 911 and she noted that his eyes rolled up and his pupils were dilated. He vomited small amoun t of clear liquid once. says that the patient never complained of any chest pain, shortness of breath and never lost any consciousness. EMS arrived and the patient was brought into emergency room and I saw him in the ER soon after he arrived, and after workup was completed, the patient was admit babar to the hospital. No history of any vomiting, diarrhea lately. No history of any blood in stool blood in the urine. No fever, cough, cold, congestion, or any kind of febrile illness recently. Allergies: NO KNOWN ALLERGIES. Medications: Claritin 10 mg daily as needed for allergies, Ofev 100 mg dose 1 capsule daily, rivasti gmine patch 13.3 mg patch daily, rosuvastatin 20 mg daily, and sertraline 50 mg tablet, takes half a tablet daily. Review of Systems: Cardiovascular: As mentioned above. MANAGER TITLE: As mentioned above. All other systems reviewed and negative. Past Medical History: Significant for allergic rhinitis, impaired fasting glucose, hyperlipidemia, p ulmonary fibrosis, benign prostatic hypertrophy, depression, and Alzheimer disease. Surgical History: Significant for cholecystectomy. Family History: Father had congestive heart failure. Mother had hypertension and diabetes. Social History: Negative for smoking. Use of alcohol occasional. Physical Examination: VITAL SIGNS: Temperature 97.8, pulse 77, respiratory rate 18, blood pressure 111/62, oxygen saturati on 98%. Height 6 feet 1 inch, weight 190 pounds. General: Awake, alert, oriented, not in distress. HEENT: Head atraumatic, normocephalic. Conjunctivae nonerythematous. Sclerae white. Mouth, no thr ush or edema noted. Ears/Nose, no mass, lesion, discharge noted. Neck: Supple. No JVD, lymph nodes, bruit, thyromegaly noted. Lungs: Bilateral rales noted in lower 1/3rd to lower 1/4th lung region, unchanged from before due to his pulmonary fibrosis. Heart: Normal heart sounds, no murmur or gallop. Abdomen: Soft, bowel sounds normal. No guarding, rigidity, tenderness, mass, hepatosplenomegaly, dis tention, or bruit noted. Extremities: No leg edema. No calf tenderness. Skin: No rash, ulcer, cellulitis. Lymphatics: No lymph node enlargement in neck, supraclavicular, infraclavicular region. Neuro: No focal neurological deficit. Chest: Unremarkable. External Genitalia: Deferred. Rectal: Deferred. Laboratory Data: WBC 5.8, hemoglobin 15.6, platelets 171. Sodium 140, potassium 3.7, chloride 107, bicarb 27, BUN 19, creatinine 1.06, glucose 163. Liver function tests unremarkable. Troponin 5.4. Lipase 89. Urinalysis: 1+ blood, 5 to 10 RBC. Urine appearance clear. Otherwise, rest of the urin alysis was normal. Chest x-ray shows fibrotic lung changes. CAT scan of the head was negative for a ny acute intracranial changes. CAT scan of the cervical spine: No acute fracture. Evidence of dege nerative disease of cervical spine. CAT scan of the chest, abdomen, pelvis shows changes of pulmonar y fibrosis, unchanged from 2020, otherwise no acute findings. Impression: 1. Syncope. 2. Idiopathic pulmonary fibrosis. 3. Alzheimer disease, late stage. 4. Hyperlipidemia. 5. Impaired fasting glucose. 6. Allergic rhinitis. 7. Benign prostatic hypertrophy without lower urinary tract symptoms. Plan: We will go ahead and admit the patient to hospital for further evaluation and management of th is problem. The patient is appropriate for observation. We will repeat cardiac enzymes later on thi s evening. The patient's initial workup in the emergency room was unremarkable. I strongly suspect that his today's presentation with syncope was likely due to drop in his blood pressure and we will c heck orthostatic vital signs. The patient was taking memantine in the past, but recently, his memant ine was discontinued within last few months when he started rivastigmine patch as prescribed by his n eurologist in [place]. We will continue IV fluid, and for his chronic problems of pulmonary fibrosis and hyperlipidemia, no need for further intervention. For Alzheimer disease, again no need for inte rvention at this time. I will repeat blood work tomorrow and I will see him tomorrow morning for fol lowup. Carotid Doppler was ordered and I will see him tomorrow for followup. Total time spent today was 80 minutes including review of last office visit record from 01/09/2025, c ommunication with the emergency room physician on 2 different occasions, review of emergency room vis it record, and performing today's evaluation and management. EVE/MODL Voice ID: [id number]
--- NOTE | 2025-02-11 12:23 | EKG ---
Test Date: 2025-02-09 Test Time: 10:31:19 Teaching Artist: Mau GAR MEASUREMENT RESULTS: Intervals: Rate: 68 [place]: 144 QRSD: 96 QT: 400 QTc: 425 [place]: P: 51 [place]: 144 QRS: 47 T: 5 INTERPRETIVE STATEMENTS: Normal sinus rhythm Normal ECG Compared to ECG 12/04/2024 10:23:58 No significant changes Electronically Signed On 02-11-25 12:19:48 CDT by Gaston Pruitt
== END 2025-02-10 14:14 | disposition home health service (06) ==
LOC: ER 09:54 → ERHOLD 12:59 → INTOOBSV 12:59 → 2ND 15:50
PROVIDERS: ADMIT Internal Medicine; ATTEND Internal Medicine
DX: R55 Syncope and collapse (principal); R53.1 Weakness; E78.5 Hyperlipidemia, unspecified; R73.01 Impaired fasting glucose; G30.9 Alzheimer's disease, unspecified; F02.80 Dementia in other diseases classified elsewhere, unspecified severity, without behavioral disturbance, psychotic disturbance, mood disturbance, and anxiety; F32.A Depression, unspecified; J84.10 Pulmonary fibrosis, unspecified; N40.0 Benign prostatic hyperplasia without lower urinary tract symptoms; J30.9 Allergic rhinitis, unspecified
CPT/HCPCS: 93005; 87040 ×2; 85025 ×2; 81001; 80048 ×2; 36415; 83735; 85610; 80076; 84484 ×2; 83690; 83880; 70450; 71250; 72125; 74176; 71045; 93880; 51702; 96375; 96372; 96374; 99285; J2550; J2405; J7030 ×4; J0692; G0378 ×4